=== PATIENT | female | born 1945 | race Caucasian/White ===

== ENCOUNTER 2017-01-16 08:39 | Day surgery (SDC) | payer MEDICARE ==
[2017-01-16] MEDS ORDERED: LACTATED RINGERS 1,000 ML IV ONE (09:30)
[2017-01-16] MEDS ORDERED: MIDAZOLAM 2 MG/2 ML VIAL IVP ONE (10:08)
[2017-01-16] MEDS ORDERED: fentaNYL 250 MCG/5 ML VIAL IVP ONE (10:08)
== END 2017-01-16 08:40 | disposition home or self-care (01) ==
PROC: 0DJD8ZZ Inspection of Lower Intestinal Tract, Via Natural or Artificial Opening Endoscopic (ICD-10-PCS; principal; 2017-01-16 09:45)
DX: Z12.11 Encounter for screening for malignant neoplasm of colon (principal); K57.30 Diverticulosis of large intestine without perforation or abscess without bleeding; K64.8 Other hemorrhoids; E78.00 Pure hypercholesterolemia, unspecified; F41.9 Anxiety disorder, unspecified; F32.9 Major depressive disorder, single episode, unspecified; I10 Essential (primary) hypertension
CPT/HCPCS: G0121; J3010; J7120

== ENCOUNTER 2017-04-22 09:05 | Outpatient (CLI) | payer MEDICARE ==
--- NOTE | 2017-04-22 16:18 | Mammography Report ---
DIGITAL DIAGNOSTIC BILATERAL MAMMOGRAM: 04/22/2017 CLINICAL INDICATION: History of right breast cancer status post lumpectomy and radiation therapy. TECHNIQUE: Bilateral CC and MLO views, right true lateral and laterally exaggerated craniocaudal vie ws. COMPARISON: 02/05/2016, 11/14/2015, 01/24/2015, 07/04/2014, 12/24/2013, 01/20/2013, 09/01/2012, 03/18, 03/05/2012, 02/21/2012, 02/04/2012. FINDINGS: The breasts again demonstrate scattered fibroglandular densities bilaterally. Coarse and punctate, typically benign calcifications are present. Postoperative and posttreatment changes in th e right breast are stable. No suspicious masses, clustered microcalcifications, or regions of jenaro ectural distortion are identified. IMPRESSION: BENIGN FINDINGS. RECOMMENDATION: The patient can return to routine annual screening unless otherwise clinically indic ated. BI-RADS category 2, benign findings. STANDARD QUALIFYING STATEMENTS 1. This examination was reviewed with the aid of Computer-Aided Detection (CAD). 2. A negative or benign imaging report should not delay biopsy if clinically suspicious findings are present. Consider surgical consultation if warranted. More than 5% of cancers are not identified by i maging. 3. Dense breasts may obscure an underlying neoplasm. JOB #: [id number] EXT JOB #:[id number]
== END 2017-04-22 09:06 | disposition home or self-care (01) ==
LOC: DI 09:05
PROVIDERS: ATTEND Internal Medicine Hematology & Oncology
DX: C50.911 Malignant neoplasm of unspecified site of right female breast (principal)
CPT/HCPCS: 77066

== ENCOUNTER 2017-05-08 08:00 | Outpatient (CLI) | payer MEDICARE ==
[2017-05-08 11:48] LABS: BASOPHILS % (AUTO) 0.5 %; EOSINOPHILS # (AUTO) 0.2 10^3/uL (0.0-0.7); EOSINOPHILS % (AUTO) 3.7 %; HCT - HEMATOCRIT 39.2 % (37.0-47.0); HGB - HEMOGLOBIN 13.3 g/dL (12.0-16.0); LYMPHOCYTES # (AUTO) 1.8 10^3/uL (1.5-3.5); LYMPHOCYTES % (AUTO) 27.2 %; MEAN CORPUSCULAR HEMOGLOBIN 29.4 pg (27.0-31.0); MEAN CORPUSCULAR VOLUME 86.5 fL (81.0-99.0); MEAN PLATELET VOLUME 8.5 fL (7.9-10.8); MONOCYTES # (AUTO) 0.7 10^3/uL (0.0-1.0); MONOCYTES % (AUTO) 10.6 %; NEUTROPHILS # (AUTO) 3.8 10^3/uL (1.5-6.6); RED BLOOD COUNT 4.53 10^6/uL (4.20-5.40); RED CELL DISTRIBUTION WIDTH 13.3 % (12.0-15.0); UNCORRECTED WHITE BLOOD COUNT 6.6 x10^3/uL; WHITE BLOOD COUNT 6.6 x10^3/uL (4.8-10.8)
[2017-05-08 12:12] LABS: ALBUMIN/GLOBULIN RATIO 1.1 (1.0-2.2); BILIRUBIN,TOTAL 0.6 mg/dL (0.2-1.0); BUN - BLOOD UREA NITROGEN 18 mg/dL (6-20); CALCIUM 9.1 mg/dL (8.5-10.3); CARBON DIOXIDE - CO2 27 mmol/L (21-32); CHLORIDE 103 mmol/L (101-111); CREATININE 0.7 mg/dL (0.4-1.0); GFR - MDRD 82 (>89); GLUCOSE 111 mg/dL (70-100); POTASSIUM 3.5 mmol/L (3.5-5.0); SODIUM 139 mmol/L (135-145); TOTAL PROTEIN 6.1 g/dL (6.7-8.2)
[2017-05-08 12:28] LABS: HEMOGLOBIN A1C 0.73 g/dL
[2017-05-09 07:53] LABS: CHOL/HDL RATIO 4.8 (<4.4); CHOLESTEROL 124 mg/dL; HDL CHOLESTEROL 26 mg/dL; LDL/HDL RATIO 2.1 (<4.4); TRIGLYCERIDES 213 mg/dL; VLDL CHOLESTEROL 43 mg/dL
== END 2017-05-08 08:01 | disposition home or self-care (01) ==
LOC: LAB.R 08:00
PROVIDERS: ATTEND Internal Medicine
DX: C50.919 Malignant neoplasm of unspecified site of unspecified female breast (principal); E78.2 Mixed hyperlipidemia; R73.09 Other abnormal glucose
CPT/HCPCS: 80053; 80061; 83036; 85025

== ENCOUNTER 2017-05-28 07:23 | Outpatient (CLI) | payer MEDICARE ==
[2017-05-28] MEDS ORDERED: IOPAMIDOL-300 100 ML VIAL IVP ONE (08:42)
--- NOTE | 2017-05-28 17:51 | CT Report ---
CT NECK WITH CONTRAST: 05/28/2017 CLINICAL INDICATION: Neck mass, swelling. Axial CT images of the neck were obtained with 80 mL Isovue-300 intravenously. In accordance with CT protocol optimization, one or more of the following dose reduction techniques w ere utilized for this exam: automated exposure control, adjustment of mA and/or KV based on patient size, or use of iterative reconstructive technique. No previous exam is available for comparison. The vascular structures enhance normally. No cervical adenopathy is present. The salivary glands an d thyroid gland are unremarkable. The tracheal air column is widely patent throughout. The nasophar ynx, oropharynx, and hypopharynx appear unremarkable. The visualized intraorbital contents are unrem arkable. Osseous structures demonstrate degenerative changes. IMPRESSION: NO EVIDENCE OF ADENOPATHY OR OTHER EXPLANATION FOR NECK SWELLING AND SENSATION OF A PALP ABLE MASS. JOB #: [id number] EXT JOB #:[id number]
== END 2017-05-28 07:24 | disposition home or self-care (01) ==
LOC: DI 07:23
PROVIDERS: ATTEND Otolaryngology
DX: R22.1 Localized swelling, mass and lump, neck (principal); M54.2 Cervicalgia
CPT/HCPCS: 70491; Q9967

== ENCOUNTER 2017-08-20 10:18 | Outpatient (CLI) | payer MEDICARE ==
--- NOTE | 2017-08-20 11:31 | XRAY Report ---
THREE-VIEW RIGHT ANKLE: 08/20/2017 CLINICAL INDICATION: Pain. FINDINGS: AP, lateral, oblique views of the right ankle demonstrate no evidence of fracture or dislo cation. The ankle mortise is preserved. No effusion is seen. Plantar and posterior calcaneal spurr ing is present. Soft tissue swelling is noted. IMPRESSION: SOFT TISSUE SWELLING, BUT NO EVIDENCE OF FRACTURE. DEGENERATIVE CHANGES. JOB #: [id number] EXT JOB #:[id number]
--- NOTE | 2017-08-20 11:32 | XRAY Report ---
THREE-VIEW RIGHT FOOT: 08/20/2017 CLINICAL INDICATION: Pain. FINDINGS: AP, lateral, oblique views of the right foot demonstrate mild degenerative changes at the 1st metatarsophalangeal joint. Plantar and posterior calcaneal spurring is present. Soft tissue swe lling is seen. There is no evidence of acute fracture or dislocation. IMPRESSION: MILD OSTEOARTHRITIS. SOFT TISSUE SWELLING, BUT NO EVIDENCE OF ACUTE FRACTURE. JOB #: [id number] EXT JOB #:[id number]
== END 2017-08-20 10:19 | disposition home or self-care (01) ==
LOC: DI 10:18
PROVIDERS: ATTEND Nurse Practitioner Primary Care
DX: M19.071 Primary osteoarthritis, right ankle and foot (principal)
CPT/HCPCS: 84550

== ENCOUNTER 2017-08-20 11:15 | Outpatient (CLI) | payer MEDICARE | END 2017-08-20 11:16 | disposition home or self-care (01) | LOC: LAB.R 11:15 | PROVIDERS: ATTEND Nurse Practitioner Primary Care | DX: M79.671 Pain in right foot (principal); M10.9 Gout, unspecified | CPT/HCPCS: 84550 ==

== ENCOUNTER 2017-10-22 08:05 | Outpatient (CLI) | payer MEDICARE ==
[2017-10-22 15:29] LABS: HEMOGLOBIN A1C 0.61 g/dL
== END 2017-10-22 08:06 | disposition home or self-care (01) ==
LOC: LAB.R 08:05
PROVIDERS: ATTEND Internal Medicine
DX: E11.9 Type 2 diabetes mellitus without complications (principal)
CPT/HCPCS: 83036

== ENCOUNTER 2017-12-15 11:10 | Outpatient (CLI) | payer MEDICARE | END 2017-12-15 11:11 | disposition home or self-care (01) | LOC: LAB.R 11:10 | PROVIDERS: ATTEND Internal Medicine | DX: M10.9 Gout, unspecified (principal) | CPT/HCPCS: 84550 ==

== ENCOUNTER 2018-02-18 08:00 | Outpatient (CLI) | payer MEDICARE ==
[2018-02-18 18:12] LABS: CALCIUM 9.3 mg/dL (8.5-10.3); CREATININE 0.8 mg/dL (0.4-1.0)
[2018-02-18 18:53] LABS: HB2 TOTAL 15.6 g/dL; HEMOGLOBIN A1C 0.64 g/dL; HEMOGLOBIN A1C % 5.9 % (4.6-6.2)
== END 2018-02-18 08:01 | disposition home or self-care (01) ==
LOC: LAB.R 08:00
PROVIDERS: ATTEND Internal Medicine
DX: E11.9 Type 2 diabetes mellitus without complications (principal); Z79.899 Other long term (current) drug therapy
CPT/HCPCS: 80048; 83036

== ENCOUNTER 2018-02-21 13:51 | Outpatient (CLI) | payer MEDICARE ==
--- NOTE | 2018-02-23 08:58 | MRI Report ---
EXAM: RIGHT FOREFOOT MRI WITHOUT CONTRAST EXAM DATE: 02/21/2018 03:25 PM. CLINICAL HISTORY: Chronic pain of right ankle, right foot pain. COMPARISON: Ankle MRI performed the same date. Radiographs 08/20/2017. TECHNIQUE: Multiplanar, multisequence T1-weighted and fluid-sensitive sequences of the forefoot witho ut contrast. Other: None. FINDINGS: Bones and articular surfaces: Mild cartilage thinning and irregularity with small marginal osteophyte formation at the first MTP joint. Patchy areas of subchondral marrow edema most pronounced at the di stal plantar aspect of the first metatarsal head. Small joint effusion with some synovitis. No discre te erosion demonstrated. No fractures are identified. No destructive bone lesions. Musculotendinous structures: Visualized flexor and extensor tendons appear intact without evidence of significant tendinosis or tenosynovitis. Visualized intrinsic muscles of the forefoot demonstrate no edema, atrophy or fatty replacement. Ligaments: Visualized components of the Lisfranc ligament appear intact. The visualized tarsometatars al and intermetatarsal ligaments appear intact. IMPRESSION: 1. Moderate first MTP osteoarthritis. [facility] MUSCULOSKELETAL RADIOLOGY SECTION Referring Provider Line: [phone] SITE ID: [id number]
--- NOTE | 2018-02-23 08:58 | MRI Report ---
EXAM: RIGHT ANKLE/HINDFOOT MRI WITHOUT CONTRAST EXAM DATE: 02/21/2018 03:47 PM. CLINICAL HISTORY: Chronic pain of right ankle, right foot pain. COMPARISON: Radiographs 08/20/2017. Forefoot MRI performed the same date. TECHNIQUE: Multiplanar, multisequence T1-weighted and fluid-sensitive sequences of the ankle/hindfoot without contrast. Other: None. FINDINGS: Bones and Articular Surfaces: Small talonavicular joint effusion. Irregular osteophytes and small foc i of well-corticated ossification at the tip of the medial and lateral malleoli consistent with old a nkle trauma. Ankle mortise appears intact. No osteochondral lesions. Subtalar, calcaneocuboid and yany onavicular joints are otherwise unremarkable. Musculotendinous Structures: Trace amount of fluid associated with the peroneus longus and brevis ten dons as well as the tibialis posterior. Visualized anterior, posterior and posterolateral ankle tendo ns otherwise appear intact. No muscle edema, atrophy or fatty replacement within the [id number]. Ligaments: The anterior and posterior talofibular, calcaneofibular, deltoid and spring ligaments appe ar intact. Normal signal within the tarsal sinus. IMPRESSION: 1. Minimal tenosynovitis involving the peroneus longus and brevis as well as the tibialis posterior. [facility] MUSCULOSKELETAL RADIOLOGY SECTION Referring Provider Line: [phone] SITE ID: [id number]
== END 2018-02-21 13:52 | disposition home or self-care (01) ==
LOC: DI 13:51
PROVIDERS: ATTEND Internal Medicine Rheumatology
DX: M19.071 Primary osteoarthritis, right ankle and foot (principal); M65.871 Other synovitis and tenosynovitis, right ankle and foot

== ENCOUNTER 2018-05-12 08:10 | Outpatient (CLI) | payer MEDICARE ==
[2018-05-12 11:06] LABS: BASOPHILS % (AUTO) 0.4 %; EOSINOPHILS # (AUTO) 0.2 10^3/uL (0.0-0.7); EOSINOPHILS % (AUTO) 2.8 %; HGB - HEMOGLOBIN 13.8 g/dL (12.0-16.0); LYMPHOCYTES # (AUTO) 1.9 10^3/uL (1.5-3.5); LYMPHOCYTES % (AUTO) 28.7 %; MEAN CORPUSCULAR HEMOGLOBIN 30.3 pg (27.0-31.0); MEAN CORPUSCULAR HGB CONC 33.3 g/dL (32.0-36.0); MEAN CORPUSCULAR VOLUME 91.2 fL (81.0-99.0); MEAN PLATELET VOLUME 8.8 fL (7.9-10.8); MONOCYTES # (AUTO) 0.6 10^3/uL (0.0-1.0); NEUTROPHILS # (AUTO) 3.8 10^3/uL (1.5-6.6); NEUTROPHILS % (AUTO) 59.1 %; PLT - PLATELET COUNT 230 10^3/uL (130-450); RED BLOOD COUNT 4.55 10^6/uL (4.20-5.40); RED CELL DISTRIBUTION WIDTH 15.2 % (12.0-15.0); WHITE BLOOD COUNT 6.5 x10^3/uL (4.8-10.8)
[2018-05-12 11:21] LABS: ALBUMIN 3.1 g/dL (3.2-5.5); ALBUMIN/GLOBULIN RATIO 0.8 (1.0-2.2); ALKALINE PHOSPHATASE 56 IU/L (42-121); ALT ALANINE AMINOTRANSFERASE 21 IU/L (10-60); AST ASPARTATE AMINOTRANSFERASE 19 IU/L (10-42); BILIRUBIN,TOTAL 0.7 mg/dL (0.2-1.0); BUN - BLOOD UREA NITROGEN 24 mg/dL (6-20); CALCIUM 9.8 mg/dL (8.5-10.3); CARBON DIOXIDE - CO2 30 mmol/L (21-32); CHLORIDE 101 mmol/L (101-111); CHOL/HDL RATIO 4.2 (<4.4); CHOLESTEROL 118 mg/dL; CREATININE 0.9 mg/dL (0.4-1.0); GFR - MDRD 61 (>89); GLUCOSE 103 mg/dL (70-100); HDL CHOLESTEROL 28 mg/dL; LDL CHOLESTEROL,CALCULATED 63 mg/dL; LDL/HDL RATIO 2.3 (<4.4); SODIUM 138 mmol/L (135-145); TOTAL PROTEIN 6.9 g/dL (6.7-8.2); URIC ACID 5.4 mg/dL (2.6-7.2); VLDL CHOLESTEROL 27 mg/dL
[2018-05-12 11:44] LABS: HEMOGLOBIN A1C 0.63 g/dL
== END 2018-05-12 08:11 | disposition home or self-care (01) ==
LOC: LAB.R 08:10
PROVIDERS: ATTEND Internal Medicine
DX: E11.9 Type 2 diabetes mellitus without complications (principal); Z79.899 Other long term (current) drug therapy; C50.919 Malignant neoplasm of unspecified site of unspecified female breast; M10.9 Gout, unspecified; I10 Essential (primary) hypertension; E78.5 Hyperlipidemia, unspecified
CPT/HCPCS: 80053; 80061; 83036; 83721; 84443; 84550; 85025

== ENCOUNTER 2018-06-23 08:50 | Outpatient (CLI) | payer MEDICARE ==
--- NOTE | 2018-06-25 14:05 | Mammography Report ---
Procedure Date: 06/23/2018 Accession Number: [id number] / [id number] Procedure: MGN - Screening Mammo Dig Bilat CPT Code: FULL RESULT: EXAM: Screening Mammo Dig Bilat DATE: 06/23/2018 9:16 AM CLINICAL HISTORY: 72-year-old female with personal history of right breast cancer status post lumpectomy and radiation as well as 2 benign left breast biopsies. TECHNIQUE: Bilateral CC and MLO views were obtained. COMPARISON: 04/22/2017, 02/05/2016, 01/24/2015, 12/24/2013. FINDINGS: The breasts demonstrate scattered fibroglandular densities bilaterally. Postsurgical changes are seen in the right breast. Postsurgical changes are also seen in the left breast. There is a new focal asymmetry in the upper right breast seen on the MLO view only which needs further evaluation with spot magnification views. IMPRESSION: Incomplete examination RECOMMENDATION: Additional evaluation as above. BIRADS CATEGORY 0: Incomplete examination STANDARD QUALIFYING STATEMENTS: 1. This examination was reviewed with the aid of Computer-Aided Detection (CAD). 2. A negative or benign imaging report should not delay biopsy if clinically suspicious findings are present. Consider surgical consultation if warrented. More than 5% of cancers are not identified by imaging. 3. Dense breasts may obscure an underlying neoplasm.
== END 2018-06-23 08:51 | disposition home or self-care (01) ==
LOC: DI.N 08:50
PROVIDERS: ATTEND Radiology Diagnostic Radiology
DX: Z12.31 Encounter for screening mammogram for malignant neoplasm of breast (principal); R92.8 Other abnormal and inconclusive findings on diagnostic imaging of breast
CPT/HCPCS: 77067

== ENCOUNTER 2018-06-25 13:26 | Outpatient (CLI) | payer MEDICARE ==
--- NOTE | 2018-06-25 15:01 | DEXA Report ---
Procedure Date: 06/25/2018 Accession Number: [id number] / [id number] Procedure: DEX - Dexa Spine and/or Hip CPT Code: FULL RESULT: EXAM: Dexa Spine and/or Hip DATE: 06/25/2018 2:03 PM CLINICAL HISTORY: POSTMENOPAUSAL, FOOT PAIN, RIGHT, OSTEOPENIA TECHNIQUE: Dual energy x-ray absorptiometry (DXA) was performed on a [employer] System. Regions measured are the AP Spine, femoral neck, and if needed forearm. COMPARISON: None. In accordance with the International Society for Clinical Densitometry (ISCD) guidelines, data from previous exams may be reanalyzed using current recommendations and techniques. This is done to allow a more accurate basis for comparison with the current study. FINDINGS: The data for the lumbar spine is as follows: BMD (g/cm/cm) T-SCORE Z-SCORE REGION L1 1.042 -0.7 0.6 L2 1.099 -0.8 0.5 L3 1.199 0.0 1.3 L4 1.309 0.9 2.3 TOTAL 1.179 0.0 1.3 NOTE: All evaluable vertebrae are used for classification The data for the hip is as follows: BMD (g/cm/cm) T-SCORE Z-SCORE REGION Neck 1.036 0.0 1.6 TOTAL 1.125 0.9 2.4 NOTE: The femoral neck or total proximal femur, whichever is lowest, is used for classification. IMPRESSION: THE WHO CLASSIFICATION BASED ON THE INTERNATIONAL REFERENCE STANDARD IS NORMAL. THE FRACTURE RISK IS NOT INCREASED. RECOMMENDATION: Patients with diagnosis of osteoporosis or osteopenia should have regular bone mineral density assessment. For those eligible for Medicare, routine testing is allowed once every 2 years. Testing frequency can be increased for patients who have rapidly progressing disease or for those who are receiving medical therapy to restore bone mass. COMMENT: World Health Organization (WHO) definitions for osteoporosis and osteopenia: NORMAL BMD: T-score at -1.0 or higher, fracture risk is low OSTEOPENIA BMD: T-score between -1.0 and -2.5, fracture risk is increased. OSTEOPOROSIS BMD: T-score at -2.5 or lower, fracture risk is high. National Osteoporosis Foundation recommends: 1. Obtain adequate dietary calcium (at least 1200 mg per day) and vitamin D (400-800 international units per day). 2. Participate, as appropriate, in regular weightbearing and muscle-strengthening exercise. 3. Avoid tobacco use and reduce alcohol and caffeine intake. 4. For more detailed information see the website at www.NOF.org.
== END 2018-06-25 13:27 | disposition home or self-care (01) ==
LOC: DI 13:26
PROVIDERS: ATTEND Internal Medicine
DX: M79.671 Pain in right foot (principal); Z78.0 Asymptomatic menopausal state
CPT/HCPCS: 77080

== ENCOUNTER 2018-12-08 08:00 | Outpatient (CLI) | payer MEDICARE ==
[2018-12-08 14:38] LABS: HB2 TOTAL 15.3 g/dL; HEMOGLOBIN A1C 0.61 g/dL; HEMOGLOBIN A1C % 5.8 % (4.6-6.2)
== END 2018-12-08 23:59 | disposition home or self-care (01) ==
LOC: LAB.R 08:00
PROVIDERS: ATTEND Internal Medicine
DX: E11.9 Type 2 diabetes mellitus without complications (principal)
CPT/HCPCS: 83036

== ENCOUNTER 2019-04-03 13:27 | Outpatient (CLI) | payer MEDICARE ==
--- NOTE | 2019-04-05 09:00 | Ultrasound Report ---
Reason: MASS OF SOFT TISSUE Procedure Date: 04/03/2019 Accession Number: [id number] / [id number] Procedure: US - Pelvic Limited or F/U CPT Code: FULL RESULT: EXAM: PELVIS ULTRASOUND, LIMITED EXAM DATE: 04/03/2019 02:02 PM. CLINICAL HISTORY: Mass of soft tissue. COMPARISON: ABDOMEN/PELVIS W04/22/2016 8:56 PM. TECHNIQUE: Real-time scanning was performed with static images obtained. FINDINGS: Targeted evaluation with color and mata scale imaging in the left suprapubic area was performed. Cellophane Wrapping Examiner static images acquired and reviewed. In the area of clinical concern, there is a lobular avascular soft tissue mass isoechoic to the adjacent subcutaneous fat measuring 4.7 x 2.6 x 5.2 cm. No additional mass, adenopathy or collection. Remaining soft tissues are otherwise unremarkable. IMPRESSION: 1. 4.7 x 2.6 x 5.2 cm circumscribed soft tissue mass in the area of clinical concern demonstrating echotexture isoechoic to the adjacent subcutaneous fat. No internal vascularity. Sonographic findings are most consistent with a lipoma. Findings were demonstrated on a CT performed 04/22/2016. 2. If lesion increases in size or become painful, recommend MRI with and without contrast. 3. No concerning adenopathy or collection seen. [facility]
== END 2019-04-03 13:28 | disposition home or self-care (01) ==
LOC: DI 13:27
PROVIDERS: ATTEND Nurse Practitioner
DX: M79.9 Soft tissue disorder, unspecified (principal); R22.2 Localized swelling, mass and lump, trunk
CPT/HCPCS: 76857

== ENCOUNTER 2019-05-11 06:07 | Day surgery (SDC) | payer MEDICARE ==
[2019-05-11] MEDS ORDERED: LACTATED RINGERS 1,000 ML IV ONE (06:59)
--- NOTE | 2019-05-11 07:05 | ANESTHESIA ---
Pre-Anesthesia VS, & Labs - Diagnosis L LQ Lipoma - Procedure Excision L LQ lipoma Vital Signs: Temp Pulse Resp BP Pulse Ox 36.4 C L 51 L 16 138/64 H 95 05/11/19 06:37 05/11/19 06:37 05/11/19 06:37 05/11/19 06:37 05/11/19 06:37 Height 5 ft 4 in Weight (kg) 80.6 kg Body Mass Index 28.8 - NPO >8 hours - Is Patient ?: No - Lab Results Current Lab Results: Laboratory Tests 05/11/19 06:55: POC Whole Bld Glucose 102 H Lab results reviewed: Yes Home Medications and Allergies Home Medications: Ambulatory Orders Calcium Carbonate/Vitamin D3 [Calcium 600 + Vit D 400 Tablet] 1 each PO DAILY 05/04/19 Spironolactone 1 DAILY 05/11/19 Metoprolol Succinate [Toprol Xl] 1.5 tab PO BID 06/09/13 amLODIPine [Norvasc] 5 mg PO DAILY 06/09/13 Atorvastatin Calcium 40 mg PO DAILY 12/06/13 clonazePAM [Clonazepam] 0.5 mg PO DAILY 12/30/16 Calcium Carbonate/Vitamin D3 [Calcium 600 + Vit D 400 Tablet] 1 each PO DAILY 05/04/19 Allergies/Adverse Reactions: Allergies Allergy/AdvReac Type Severity Reaction Status Date / Time lamotrigine Allergy Unknown Verified 05/11/19 07:03 mirtazapine Allergy Unknown Verified 05/11/19 07:03 losartan AdvReac Respiratory Verified 05/11/19 07:03 terazosin AdvReac Respiratory Verified 05/11/19 07:03 tape AdvReac Rash Uncoded 05/11/19 07:03 Anes History & Medical History - Anesthetic History Anesthesia Complications: reports: No previous complications - Medical History Cardiovascular: reports: Hypertension, High cholesterol, Murmur, Arrhythmia Pulmonary: reports: Sleep apnea, CPAP use Gastrointestinal: reports: Diverticulitis Urinary: reports: None Musculoskeletal: reports: Osteoarthritis Endocrine/Autoimmune: reports: None Skin: reports: Other - Surgical History General: Colonoscopy Eyes Ears Nose Throat (EENT): Cataracts Gynecologic: Hysterectomy Exam General: Alert, Oriented x3, Cooperative Mouth Openin Fingerbreadth Neck Mobility: Normal Mallampati classification: II Thyromental Distance: 4-6 cm Respiratory: Lungs clear, No respiratory distress Cardiovascular: Regular rate Neurological: Normal gait Mental/Cognitive Status: Alert/Oriented X3 Cognitive Status: Within normal limits Plan Anesthesia Type: General Consent for Procedure(s) Verified and Reviewed: Yes Code Status: Attempt Resuscitation ASA classification: 2-Mild systemic disease Is this case an emergency?: No
[2019-05-11] MEDS ORDERED: BUPIVACAINE 0.5%-EPI 1:200000 PF 30 ML VIAL ONE (07:13)
[2019-05-11] MEDS ORDERED: LIDOCAINE 1% 50 ML MDV ONE (07:13)
[2019-05-11] MEDS ORDERED: ONDANSETRON 4 MG/2 ML VIAL IVP ONE (07:30)
[2019-05-11] MEDS ORDERED: fentaNYL 100 MCG/2 ML VIAL IVP ONE (07:30)
[2019-05-11] MEDS ORDERED: PROPOFOL 200 MG/20 ML VIAL IVP ONE (07:30)
[2019-05-11] MEDS ORDERED: LIDOCAINE-MPF 2% 5 ML VIAL IM ONE (07:30)
[2019-05-11] MEDS ORDERED: MIDAZOLAM 2 MG/2 ML VIAL IVP ONE (07:30)
[2019-05-11] MEDS ORDERED: ceFAZolin 1 GM VIAL IV ONE (07:30)
[2019-05-11] MEDS ORDERED: BUPIVACAINE 0.5%-EPI 1:200000 PF 30 ML VIAL SUBQ ONE (08:01)
[2019-05-11] MEDS ORDERED: LIDOCAINE 1% 10 ML MDV SUBQ ONE (08:01)
--- NOTE | 2019-05-11 08:16 | OPERATIVE REPORT ---
Operative Report - General Procedure Date: 05/11/19 Planned Procedure: Excision of LLQ Abdominal Wall Mass Pre-Op Diagnosis: LLQ Mass Procedure Performed: Excision of LLQ Mass Post Op Diagnosis: LLQ Mass Consistent with a Lipoma - Procedure Note Primary Surgeon: Monique Anesthesia Provider: DMITRI Sanches Anesthesia Technique: General LMA, Local Pathology: Mass to pathology in formalin IV Fluids (mL): 100 Estimated Blood Loss (mL): 5 Findings: Lobulated fatty mass in the LLQ Complications: None apparent - Other Other Information/Narrative: After obtaining informed consent, the patient is brought to the operating room and placed in the supine position on the operating table.Successful induction of general endotracheal anesthesia, appropriate padding of all bony prominences, and placement of appropriate monitors, the abdomen and left lower quadrant were prepped and draped in the standard surgical fashion. A timeout was held per SCOAP protocol. Following infiltration with local anesthetic to create a field block, an incision was created directly over the palpable mass and carried down through the skin and subcutaneous tissue. We encountered a lobulated mass within a well circumscribed pocket in the left lower quadrant. The mass was delivered into the field and was noted to be fairly incohesive with multiple lobulated areas that fell apart into separate sections.The wound was then checked for hemostasis and irrigated with warm water.It was aspirated free of all fluid and particulate matter.The defect was then addressed with Vicryl and Monocryl sutures and Dermabond was applied to the skin. All sponge, needle, and instrument counts were correct at the conclusion of the case. The patient was allowed awaken from anesthesia without difficulty and taken to the postanesthesia care unit in good condition.
[2019-05-11] MEDS ORDERED: HYDROcod/ACETAM 5/325 MG TABLET PO PRN (08:23)
[2019-05-11] MEDS ORDERED: ONDANSETRON 4 MG/2 ML VIAL IVP PRN (08:23)
[2019-05-11 09:23] VITALS: BP 136/78
== END 2019-05-11 06:08 | disposition home or self-care (01) ==
LOC: SDS 06:07
PROVIDERS: ATTEND Surgery
PROC: 0JB80ZZ Excision of Abdomen Subcutaneous Tissue and Fascia, Open Approach (ICD-10-PCS; principal; 2019-05-11 07:30)
DX: D17.1 Benign lipomatous neoplasm of skin and subcutaneous tissue of trunk (principal); I10 Essential (primary) hypertension; I49.9 Cardiac arrhythmia, unspecified; R01.1 Cardiac murmur, unspecified; G47.30 Sleep apnea, unspecified; Z85.3 Personal history of malignant neoplasm of breast; Z92.3 Personal history of irradiation; Z79.899 Other long term (current) drug therapy
CPT/HCPCS: 22903; J7120

== ENCOUNTER 2019-05-31 07:25 | Outpatient (CLI) | payer MEDICARE ==
[2019-05-31 08:16] LABS: ALBUMIN 3.3 g/dL (3.2-5.5); ALBUMIN/GLOBULIN RATIO 0.9 (1.0-2.2); ALKALINE PHOSPHATASE 55 IU/L (42-121); ALT ALANINE AMINOTRANSFERASE 20 IU/L (10-60); AST ASPARTATE AMINOTRANSFERASE 18 IU/L (10-42); BILIRUBIN,TOTAL 0.5 mg/dL (0.2-1.0); BUN - BLOOD UREA NITROGEN 21 mg/dL (6-20); CALCIUM 9.3 mg/dL (8.5-10.3); CARBON DIOXIDE - CO2 26 mmol/L (21-32); CHLORIDE 105 mmol/L (101-111); CHOL/HDL RATIO 4.9 (<4.4); CHOLESTEROL 142 mg/dL; CREATININE 0.9 mg/dL (0.4-1.0); GFR - MDRD 61 (>89); GLUCOSE 108 mg/dL (70-100); HDL CHOLESTEROL 29 mg/dL; LDL CHOLESTEROL,CALCULATED 91 mg/dL; LDL/HDL RATIO 3.1 (<4.4); SODIUM 141 mmol/L (135-145); TOTAL PROTEIN 6.8 g/dL (6.7-8.2); URIC ACID 7.5 mg/dL (2.6-7.2); VLDL CHOLESTEROL 22 mg/dL
[2019-05-31 08:42] LABS: HB2 TOTAL 13.6 g/dL; HEMOGLOBIN A1C 0.61 g/dL; HEMOGLOBIN A1C % 6.3 % (4.6-6.2)
[2019-05-31 08:46] LABS: BASOPHILS # (AUTO) 0.1 10^3/uL (0.0-0.1); BASOPHILS % (AUTO) 0.8 %; EOSINOPHILS # (AUTO) 0.2 10^3/uL (0.0-0.7); EOSINOPHILS % (AUTO) 2.6 %; HGB - HEMOGLOBIN 13.7 g/dL (12.0-16.0); LYMPHOCYTES # (AUTO) 2.1 10^3/uL (1.5-3.5); LYMPHOCYTES % (AUTO) 29.3 %; MEAN CORPUSCULAR HEMOGLOBIN 30.4 pg (27.0-31.0); MEAN CORPUSCULAR HGB CONC 32.5 g/dL (32.0-36.0); MEAN CORPUSCULAR VOLUME 93.3 fL (81.0-99.0); MEAN PLATELET VOLUME 10.4 fL (7.9-10.8); MONOCYTES # (AUTO) 0.9 10^3/uL (0.0-1.0); MONOCYTES % (AUTO) 11.9 %; NEUTROPHILS # (AUTO) 3.9 10^3/uL (1.5-6.6); NEUTROPHILS % (AUTO) 54.3 %; PLT - PLATELET COUNT 248 10^3/uL (130-450); RED BLOOD COUNT 4.51 10^6/uL (4.20-5.40); RED CELL DISTRIBUTION WIDTH 13.4 % (12.0-15.0); WHITE BLOOD COUNT 7.2 x10^3/uL (4.8-10.8)
== END 2019-05-31 07:26 | disposition home or self-care (01) ==
LOC: LAB 07:25
PROVIDERS: ATTEND Nurse Practitioner
DX: M10.9 Gout, unspecified (principal); I10 Essential (primary) hypertension; E78.5 Hyperlipidemia, unspecified; R73.01 Impaired fasting glucose
CPT/HCPCS: 36415; 80053; 80061; 83036; 83721; 84443; 84550; 85025

== ENCOUNTER 2019-06-11 07:42 | Outpatient (CLI) | payer MEDICARE | END 2019-06-11 07:43 | disposition home or self-care (01) | LOC: DI 07:42 | PROVIDERS: ATTEND Nurse Practitioner | DX: I10 Essential (primary) hypertension (principal); E78.5 Hyperlipidemia, unspecified | CPT/HCPCS: 93306 ==

== ENCOUNTER 2019-07-12 15:13 | Outpatient (CLI) | payer MEDICARE ==
--- NOTE | 2019-07-12 16:08 | SLEEP CARE CONSULTATION ---
Information from patient questionnaire entered by Linda Banuelos. I have reviewed and concur with the information entered by Linda Banuelos. This document represents the service I personally performed and the decisions made by me, Klaudia Stoll MD, [facility]. History of Present Illness Previous diagnosis: Moderate, Obstructive Sleep Apnea-Hypopnea Syndrome AHI: 15.1 Reason for CPAP/BiPAP follow up: other (8 MONTH FU NEW MACHINE) Equipment type: CPAP Equipment obtained from: [employer] Mask style: Nasal pillows Prior sleep studies: Yes Year and Where: 2003 [facility] HPI additional information: HPI: Ms. Holden returned today for annual follow up of nasal CPAP therapy. She was diagnosed to have moderate obstructive sleep apnea-hypopnea syndrome (AHI was 15.4). The patient wears with ResMed AirFit P-10 nasal pillows. She reports using the device nightly and all through the night. She complained of no particular problem with the device such as soreness on the face, dry nose, epistaxis, nasal congestion or headache. She thinks that the pressure of 8 14 cmH2O is comfortable. On the CPAP therapy she notices improvement in her sleep quality, and that she wakes up feeling fresher in the morning and more awake/alert during the day. The average residual AHI is 1.4; and average time in large leak per day is 6 seconds. The 90th percentile pressure is 9.2 cmH2O. CPAP Compliance Data - Data Reviewed with Patient Average duration of nightly device use: 7H 27M Compliance rate %: 93.3 Current pressure setting (cmH2O): 8-12 Humidity settin Subjective Patient concerns: reports: mask discomfort Current pressure setting perceived as: comfortable Initial [place] Sleepiness Scale score: 15 Current [place] Sleepiness Scale score: 15 Allergies and Home Medications Drug allergies reviewed: Yes Home medication list reviewed: Yes Review of Systems Review of systems same as previous: Yes Impression and Plan IMPRESSION: 1. Obstructive Sleep Apnea-Hypopnea Syndrome, moderate, with the patient continuing to do well on nasal CPAP therapy. She has excellent compliance and significant clinical improvement. The current pressure appears effective and comfortable. Overall, she is very satisfied with treatment and plans to continu e with it long-term. Because the CPAP is now older than the useful life of 5 years, I will order the patient a new one and make it an autoCPAP set between 6 and 10 cmH2O. PLAN: 1. Prescription made for an autoCPAP, heated humidifier, and related supplies. 2. Try to lose weight 3. Try ResMed N30i mask or Respironics DreamWear nasal cushion mask. 4. Return for follow up after one month on the new machine. I spent 100% of this 15 minute visit face to face with the patient with greater than 50% of this was spent time counseling the patient and coordination of care.
== END 2019-07-12 15:14 | disposition home or self-care (01) ==
LOC: SC 15:13
PROVIDERS: ATTEND Internal Medicine Pulmonary Disease
DX: G47.33 Obstructive sleep apnea (adult) (pediatric) (principal)
CPT/HCPCS: 99213; G0463; 99212

== ENCOUNTER 2019-07-14 13:23 | Outpatient (CLI) | payer MEDICARE ==
--- NOTE | 2019-07-15 08:37 | Mammography Report ---
Reason: SCREENING MAMMO Procedure Date: 07/14/2019 Accession Number: [id number] / [id number] Procedure: YADIRA - Screening Mammo w/Sky CPT Code: FULL RESULT: EXAM: Screening Mammo w/Sky DATE: 07/14/2019 2:04 PM CLINICAL HISTORY: Screening encounter. Personal history of right breast cancer status post lumpectomy in 2012 and left breast excisional biopsy with negative pathology. Family history of breast cancer in a sister at the age of 42. TECHNIQUE: (B) - Bilateral CC, laterally exaggerated CC, MLO views were obtained. COMPARISON: 06/23/2018 through 11/14/2015. PARENCHYMAL PATTERN: (A) - The breast(s) demonstrate(s) scattered fibroglandular densities. FINDINGS: Redemonstration of postsurgical changes in the right breast with continued contraction of the surgical bed in no interval increase in size of the postsurgical region, typically benign evolution. Postbiopsy changes in the left breast also seen, typically benign and essentially unchanged. There are no suspicious masses, calcifications, or areas of distortion. IMPRESSION: Benign findings. BI-RADS category 2. RECOMMENDATION: (ANNUAL) - Recommend routine annual screening mammography. BI-RADS CATEGORY: (2) - Benign Findings. STANDARD QUALIFYING STATEMENTS: 1. This examination was not reviewed with the aid of Computer-Aided Detection (CAD). 2. A negative or benign imaging report should not preclude biopsy if clinically suspicious findings are present. 3. Dense breasts may obscure an underlying neoplasm. 4. This examination was reviewed with the aid of 3D breast imaging (tomosynthesis).
== END 2019-07-14 13:24 | disposition home or self-care (01) ==
LOC: DI 13:23
PROVIDERS: ATTEND Nurse Practitioner
DX: Z12.31 Encounter for screening mammogram for malignant neoplasm of breast (principal); Z08 Encounter for follow-up examination after completed treatment for malignant neoplasm; Z85.3 Personal history of malignant neoplasm of breast; Z80.3 Family history of malignant neoplasm of breast
CPT/HCPCS: 77063; 77067

== ENCOUNTER 2019-09-28 13:42 | Outpatient (CLI) | payer MEDICARE ==
[2019-09-28 14:57] VITALS: BP 120/50
--- NOTE | 2019-09-28 14:57 | SLEEP CARE CONSULTATION ---
Information from patient questionnaire entered by Linda Banuelos. I have reviewed and concur with the information entered by Linda Banuelos. This document represents the service I personally performed and the decisions made by me, Jannet Padilla, RN, MSN, METER TECHNICIAN. History of Present Illness Previous diagnosis: Moderate, Obstructive Sleep Apnea-Hypopnea Syndrome AHI: 15.1 Reason for follow up: first compliance after device update Equipment type: CPAP Equipment obtained from: [employer] Mask style: Nasal Mask brand: Respironics (Dreamwear) Backup mask available: Yes Last cushion change: not since set up Prior sleep studies: Yes CPAP Compliance Data - Data Reviewed with Patient Average duration of nightly device use: 8H 16M Compliance rate %: 100 Current pressure setting (cmH2O): 6-10 Humidity settin Heated hose settin Average residual AHI: 5.1 Central apnea: 0.2 Obstructive apnea: 1/2 Hypopnea: 3.7 Average large leak: 1M 28S Subjective Patient concerns: reports: other (pre heat and heated hose do not seem to be working. Difficult to sleep prone with CPAP mask. ). denies: aerophagia, mask discomfort, air blowing in eyes, mask leak noise, condensation in mask/hose, nasal congestion, dry mouth, nose, throat, epistaxis Observed to snore while using device: No Current pressure setting perceived as: comfortable On therapy, patient: reports: sleeping better, awakening more refreshed, being more awake and alert during the day, more rested overall. denies: drowsiness while driving Initial [place] Sleepiness Scale score: 15 Current [place] Sleepiness Scale score: 4 Allergies and Home Medications Known drug allergies: Yes (see list ) Home medication list reviewed: Yes Allergy and home medication list: Medication Name (generic/name brand) Strength & Dosage Metoprolol 25mg tab 1.5 twice daily Amlodipine Besylate 2.5mg tab two daily Spironolactone 25mg tab one daily Atorvastatin 40mg tab one daily Doxepin 10mg tab one as needed Clozanepam 0.5mg tab one daily Calcium + Vitamin D 600mg/800IU tab two daily allopurinol 100mg 2 daily escitalopram 10mg HS Review of Systems Review of systems same as previous: No (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 Obstructive Sleep Apnea-Hypopnea Syndrome, moderate , with good treatment compliance and apnea control. On CPAP therapy, the patient has better sleep quality and is more rested overall. To improve sleep prone with CPAP ( her preferred sleep position), I showed her a CPAP pillow sample. This and other styles can be bought online for about $60. For her preheat question that did not seem to be working. We looked in the manual and found that it needed to be turned on when she wants to use nightly. If further questions she is to call [facility]. In addition, she wonders if her heated hose is working as it does not feel warm when checked. Thus I showed her how it should be checked with the sample CPAP in office. If no heat, she is to contact [facility]. She also needs to contact [facility] for updating her mask cushions as discussed to maintain seal and comfort of her cushion. Since her BMI is now 30.7 with recent weight gain and she is now prediabetic, she was advised of importance of losing weight to reduce blood sugar and to reduce apnea risk as well as overall health risks associated with obesity. She was advised to discuss a diet consult with diabetic program with PCP. If she achieves significant weight loss then her CPAP pressure requirements may decrease. Symptoms to report for further pressure adjustment discussed. Currently I will adjust her autoCPAP range slightly higher due to mild elevation of her residual AHI. If pressure change uncomfortable, she is advised to contact this office. Patient's apnea severity and rationale for treatment to reduce apnea, improve sleep quality and reduce cardiovascular and cerebrovascular events was reviewed. I also reviewed the benefit of consistent device use of CPAP for hypertension, anxiety. * * Change CPAP pressure to 8-12 cmH2O * Contact Andreina re hose concerns. * Contact PCP for diet consultation. * Consider a CPAP pillow * Notify me if snoring with mask or feeling that the pressure is too much or too little * Attempt to lose weight * Return for follow up in 1 year, or sooner if concerns arise I spent 100% of this 35 minute visit face to face with the patient with greater than 50% of this was spent time counseling the patient and coordination of care.
== END 2019-09-28 13:43 | disposition home or self-care (01) ==
LOC: SC 13:42
PROVIDERS: ATTEND Nurse Practitioner Family
DX: G47.33 Obstructive sleep apnea (adult) (pediatric) (principal)
CPT/HCPCS: 99214; G0463; 99212

== ENCOUNTER 2020-07-12 08:00 | Outpatient (CLI) | payer MEDICARE ==
[2020-07-17 20:26] LABS: HEMOGLOBIN A1c% 6.5 % (4.27-6.07)
== END 2020-07-12 23:59 | disposition home or self-care (01) ==
LOC: LAB 08:00
PROVIDERS: ATTEND Nurse Practitioner
DX: R73.01 Impaired fasting glucose (principal)
CPT/HCPCS: 83036

== ENCOUNTER 2020-07-12 10:36 | Outpatient (CLI) | payer MEDICARE ==
[2020-07-12 18:45] LABS: BASOPHILS # (AUTO) 0.1 10^3/uL (0.0-0.1); BASOPHILS % (AUTO) 0.7 %; EOSINOPHILS # (AUTO) 0.2 10^3/uL (0.0-0.7); HGB - HEMOGLOBIN 13.6 g/dL (12.0-16.0); LYMPHOCYTES # (AUTO) 2.6 10^3/uL (1.5-3.5); MEAN CORPUSCULAR HEMOGLOBIN 30.3 pg (27.0-31.0); MEAN CORPUSCULAR HGB CONC 31.1 g/dL (32.0-36.0); MEAN CORPUSCULAR VOLUME 97.6 fL (81.0-99.0); MEAN PLATELET VOLUME 10.7 fL (7.9-10.8); MONOCYTES # (AUTO) 0.8 10^3/uL (0.0-1.0); MONOCYTES % (AUTO) 10.7 %; NEUTROPHILS # (AUTO) 3.7 10^3/uL (1.5-6.6); NEUTROPHILS % (AUTO) 49.5 %; PLT - PLATELET COUNT 253 10^3/uL (130-450); RED BLOOD COUNT 4.49 10^6/uL (4.20-5.40); RED CELL DISTRIBUTION WIDTH 14.6 % (12.0-15.0); WHITE BLOOD COUNT 7.6 x10^3/uL (4.8-10.8)
[2020-07-12 19:02] LABS: ALBUMIN 3.4 g/dL (3.2-5.5); ALBUMIN/GLOBULIN RATIO 0.9 (1.0-2.2); ALKALINE PHOSPHATASE 65 IU/L (42-121); ALT ALANINE AMINOTRANSFERASE 23 IU/L (10-60); AST ASPARTATE AMINOTRANSFERASE 20 IU/L (10-42); BILIRUBIN,TOTAL 0.9 mg/dL (0.2-1.0); BUN - BLOOD UREA NITROGEN 20 mg/dL (6-20); CARBON DIOXIDE - CO2 27 mmol/L (21-32); CHLORIDE 103 mmol/L (101-111); CHOL/HDL RATIO 5.3 (<4.4); CHOLESTEROL 142 mg/dL; CREATININE 0.8 mg/dL (0.4-1.0); GLUCOSE 120 mg/dL (70-100); HDL CHOLESTEROL 27 mg/dL; LDL CHOLESTEROL,CALCULATED 60 mg/dL; LDL/HDL RATIO 2.2 (<4.4); SODIUM 139 mmol/L (135-145); URIC ACID 6.3 mg/dL (2.6-7.2); VLDL CHOLESTEROL 55 mg/dL
[2020-07-12 19:03] LABS: CRP - C-REACTIVE PROTEIN < 1.0 mg/dL (0-1.0)
== END 2020-07-12 23:59 | disposition home or self-care (01) ==
LOC: LAB.WCP 10:36
PROVIDERS: ATTEND Nurse Practitioner
DX: I10 Essential (primary) hypertension (principal); E78.5 Hyperlipidemia, unspecified; R73.01 Impaired fasting glucose; Z79.899 Other long term (current) drug therapy; F41.9 Anxiety disorder, unspecified; F41.8 Other specified anxiety disorders; I49.9 Cardiac arrhythmia, unspecified; R01.1 Cardiac murmur, unspecified; M10.9 Gout, unspecified
CPT/HCPCS: 36415; 80053; 80061; 83721; 84443; 84550; 85025; 85651; 86140

== ENCOUNTER 2020-08-25 13:09 | Outpatient (CLI) | payer MEDICARE | END 2020-08-25 13:10 | disposition home or self-care (01) | LOC: DI 13:09 | PROVIDERS: ATTEND Nurse Practitioner | DX: R01.1 Cardiac murmur, unspecified (principal); I49.9 Cardiac arrhythmia, unspecified; I70.0 Atherosclerosis of aorta; E78.5 Hyperlipidemia, unspecified; I08.0 Rheumatic disorders of both mitral and aortic valves | CPT/HCPCS: 93306 ==

== ENCOUNTER 2020-08-25 14:45 | Outpatient (CLI) | payer MEDICARE ==
--- NOTE | 2020-08-25 16:11 | DEXA Report ---
PROCEDURE: Dexa Spine and/or Hip INDICATIONS: POST MENOPAUSAL TECHNIQUE: Dual energy x-ray absorptiometry (DXA) was performed on a [employer] System. Regions measur ed are the AP Spine, femoral neck, and if needed forearm. COMPARISON: 06/25/2018. FINDINGS: Lumbar Spine: Bone Mineral Density 1.161 g/cm/cm,T score -0.2, normal Left Hip: Bone Mineral Density 1.144 g/cm/cm,T score 1.1, normal Left Femoral Neck: Bone Mineral Density 1.032 g/cm/cm, T score 0.0, normal (T score greater or equal to -1.0: NORMAL) (T score from -1.1 to -2.4: OSTEOPENIA) (T score less than or equal to -2.5 to: OSTEOPOROSIS) Impression: Normal bone density. Findings unchanged compared to prior exam obtained 06/25/2018. Patients with diagnosis of osteoporosis or osteopenia should have regular bone mineral density assess ment. For those eligible for Medicare, routine testing is allowed once every 2 years. Testing frequ ency can be increased for patients who have rapidly progressing disease or for those who are receivin g medical therapy to restore bone mass. Reviewed by: Pinky Shelley MD, PhD on 08/25/2020 4:10 PM PDT Approved by: Pinky Shelley MD, PhD on 08/25/2020 4:10 PM PDT Station ID: [id number]
== END 2020-08-25 23:59 | disposition home or self-care (01) ==
LOC: DI 14:45
PROVIDERS: ATTEND Nurse Practitioner
DX: Z78.0 Asymptomatic menopausal state (principal)
CPT/HCPCS: 77080

== ENCOUNTER 2020-08-25 15:33 | Outpatient (CLI) | payer MEDICARE ==
--- NOTE | 2020-08-28 16:18 | Mammography Report ---
BILATERAL DIGITAL SCREENING MAMMOGRAM 3D/2D: 08/25/2020 CLINICAL: Routine screening. Comparison is made to exams dated: 07/14/2019 mammogram - [facility], 07/13/2018 [facility], 06/23/2018 mammogram - [facility], 06/23/2018 mammogram - [facility], 04/22/2017 mammogram - [facility], and 04/22/2017 mammogram - [facility]. There are scattered fibroglandular elements in both breasts. There are benign calcifications in both breasts. There also are benign post operative findings in alfonso th breasts. No significant masses, calcifications, or other findings are seen in either breast. There has been no significant interval change. IMPRESSION: BENIGN There is no mammographic evidence of malignancy. A 1 year screening mammogram is recommended. This exam was interpreted at Station ID: [id number]. NOTE: For mammograms, a report in lay terms will be sent to the patient. Approximately 15% of breast malignancies will not be visualized mammographically. In the management of a palpable breast mass, a negative mammogram must not discourage biopsy of a clinically suspicious lesion. Electronically Signed By: Phil sauer/salud:08/25/2020 18:53:58 copy to: PIERRE MENDOZA copy to: MARILYNN GONZALEZ [facility] BI-RADS Category 2: Benign Finding(s) 3342F PARENCHYMAL PATTERN: (A) - The breast(s) demonstrate(s) scattered fibroglandular densities. BI-RADS CATEGORY: (2) - 2 RECOMMENDATION: (ANNUAL) - Recommend routine annual screening mammography. [id number] 1 year screening LATERALITY: (B)
== END 2020-08-25 15:34 | disposition home or self-care (01) ==
LOC: DI 15:33
PROVIDERS: ATTEND Nurse Practitioner
DX: Z12.31 Encounter for screening mammogram for malignant neoplasm of breast (principal)
CPT/HCPCS: 77063; 77067

== ENCOUNTER 2020-10-02 12:24 | Outpatient (CLI) | payer MEDICARE ==
--- NOTE | 2020-10-02 13:18 | SLEEP CARE CONSULTATION ---
Information from patient questionnaire entered by Yumi Cota. I have reviewed and concur with the information entered by Yumi Cota. This document represents the service I personally performed and the decisions made by , Danae Adams ARNP. History of Present Illness Service Date and Time: 10/02/2020 1224 Previous diagnosis: Moderate, Obstructive Sleep Apnea-Hypopnea Syndrome AHI: 15.1 (in 2003) Equipment type: CPAP Equipment obtained from: [employer] (getting supplies as needed) Mask style: Nasal Backup mask available: Yes (old mask) Last cushion change: 2 weeks ago Prior sleep studies: Yes Year and Where: 2003 - [facility] additional information: GAMAL GRAHAM was diagnosed to have moderate, AHI 15.1, obstructive sleep apnea-hypopnea syndrome and returned today for CPAP therapy annual follow-up. CPAP Compliance Data - Data Reviewed with Patient Average duration of nightly device use: 8.9 Compliance rate %: 93.3 (180 days) Current pressure setting (cmH2O): 8-12 Humidity settin Heated hose settin Average residual AHI: 2.7 Average large leak: 31 sec Subjective Missed days of use due to: reports: other (eye surgery) Patient concerns: denies: aerophagia, mask discomfort, air blowing in eyes, mask leak noise, condensation in mask/hose, nasal congestion, dry mouth, nose, throat, epistaxis, other Observed to snore while using device: No Current pressure setting perceived as: comfortable On therapy, patient: reports: sleeping better, awakening more refreshed, being more awake and alert during the day, more rested overall. denies: drowsiness while driving Initial [place] Sleepiness Scale score: 15 (in 2018) Current [place] Sleepiness Scale score: 7 Allergies and Home Medications Drug allergies reviewed: Yes (see list in chart) Home medication list reviewed: Yes (added mirtazapine, not allergic to this medication) Review of Systems Review of systems same as previous: Yes (no changes) Physical Exam Heart Rate: 62 O2 Saturation: 98 Height: 5 ft 4.25 in Weight: 184 lb Body Mass Index: 31.3 BMI Classification: Obese Impression and Plan 1. Obstructive Sleep Apnea-Hypopnea Syndrome, moderate, with good treatment compliance and good apnea control. On CPAP therapy, the patient has better sleep quality and is more rested overall. She has no complaints or issues. She is happy with her CPAP therapy. Patient has BMI is 31.3. Obesity increases the risk of apnea, CPAP pressure requirements and overall health risks especially cardiovascular and diabetes. Thus patient is advised to lose weight. Weight loss can be done with reducing portion size, reducing refined foods and balancing content with vegetables, fruit and whole grain foods. Patient's apnea severity and rationale for treatment to reduce apnea, improve sleep quality and reduce cardiovascular and cerebrovascular events was reviewed. I also reviewed the benefit of consistent device use of CPAP for hypertension and anxiety. * Continue auto CPAP pressure at 8-12 cmH2O * Notify me if snoring with mask or feeling that the pressure is too much or too little * Attempt to lose weight * Call this office if any problems using CPAP * Return for follow up in 1 year, or sooner if concerns arise Counseling Topics: Spare mask, Weight loss health impact Visit Type: In Office Time Spent with Patient (minutes): 19 Provider Statement: I spent 100% of the Face to Face Visit with the patient with greater than 50% spent counseling the patient and coordination of care.
== END 2020-10-02 12:25 | disposition home or self-care (01) ==
LOC: SC 12:24
PROVIDERS: ATTEND Nurse Practitioner Family
DX: G47.33 Obstructive sleep apnea (adult) (pediatric) (principal); E66.9 Obesity, unspecified; Z68.31 Body mass index [BMI] 31.0-31.9, adult
CPT/HCPCS: 99213; G0463; 99212

== ENCOUNTER 2020-12-01 14:55 | Outpatient (CLI) | payer MEDICARE ==
[2020-12-01] MEDS ORDERED: IOVERSOL 320 100 ML VIAL IVP ONE ×2 (15:16→16:57)
[2020-12-01] MEDS ORDERED: IOVERSOL 320 50 ML VIAL ONE (15:16)
[2020-12-01 16:08] LABS: CALCIUM 9.5 mg/dL (8.5-10.3); CREATININE 0.9 mg/dL (0.4-1.0)
[2020-12-01] MEDS ORDERED: IOVERSOL 320 50 ML VIAL PO ONE (16:58)
--- NOTE | 2020-12-01 17:21 | CT Report ---
PROCEDURE: Abdomen/Pelvis W INDICATIONS: ABD PAIN, LLQ CONTRAST: IV CONTRAST: Optiray 320 ml: 100 PO CONTRAST: Optiray 320 ml50 TECHNIQUE: After the administration of oral and IV contrast, 5 mm thick sections acquired from the diaphragms to the symphysis. 5 mm thick coronal and sagittal reformats were acquired. For radiation dose reducti on, the following was used: automated exposure control, adjustment of mA and/or kV according to daniel ent size. COMPARISON: 04/22/2016 FINDINGS: Image quality: Excellent. ABDOMEN: Lung bases: Small scattered patchy groundglass opacities at the left lung base and right middle lobe lung nodule have progressed since the prior study, the nodule now measures 8 mm, previously [address]a rt size is normal. Solid organs: There is hypertrophy of the left hepatic lobe. Mild diffuse hepatic hypodensity. No di screte mass or contour abnormality. The spleen is normal size and there is a splenule anteriorly and inferiorly. The gallbladder is partially decompressed. Adrenal glands and pancreas are normal. Intrar enal and ureteral collecting systems are slightly prominent bilaterally. A distended urinary bladder may account for this. Peritoneum and bowel: Bowel loops demonstrate normal wall thickness and caliber. Moderate descendin g, and extensive sigmoid diverticulosis without acute diverticulitis. No free fluid or air. Nodes and vessels: No retroperitoneal or mesenteric adenopathy by size criteria. Aorta and inferior vena cava are normal in size. Mild to moderate aortic calcification. Miscellaneous: No ventral hernias. PELVIS: Genitourinary: Bladder wall thickness is normal. Uterus is surgically absent. Miscellaneous: Tiny fat-containing left inguinal hernia. No pelvic adenopathy. Bones: Moderate degenerative changes at both sacroiliac joints. No suspicious bony lesions. No vert ebral body compression fractures. IMPRESSION: 1. Diverticulosis without acute diverticulitis. 2. Normal appendix. 3. Mild hepatic steatosis. 4. Slight increased size of right middle lobe lung nodule. Consider full diagnostic chest CT for full evaluation. Reviewed by: Viri Rachel MD on 12/01/2020 5:20 PM PST Approved by: Viri Rachel MD on 12/01/2020 5:20 PM PST Station ID: [id number]
== END 2020-12-01 14:56 | disposition home or self-care (01) ==
LOC: LAB 14:55
PROVIDERS: ATTEND Physician Assistant
DX: R73.01 Impaired fasting glucose (principal); K57.30 Diverticulosis of large intestine without perforation or abscess without bleeding; K76.0 Fatty (change of) liver, not elsewhere classified; R91.1 Solitary pulmonary nodule
CPT/HCPCS: 36415; 74177; 80048; Q9967

== ENCOUNTER 2020-12-20 12:21 | Outpatient (CLI) | payer MEDICARE ==
--- NOTE | 2020-12-20 17:17 | CT Report ---
PROCEDURE: CHEST WO INDICATIONS: ABNORMAL CT TECHNIQUE: Noncontrast 5 mm thick sections acquired from the pulmonary apices to the posterior costophrenic angl es. 7 mm thick coronal and sagittal MIP reformats were then acquired. For radiation dose reduction, the following was used: automated exposure control, adjustment of mA and/or kV according to patient size. COMPARISON: CT abdomen pelvis 12/01/2020 FINDINGS: Image quality: Excellent. Lungs and pleura: There are 2 nodules in the lower aspect of the right middle lobe, one measuring 5 mm, and the larger, medially measuring about 8 mm. Both appear solid. The smaller appears to be assoc iated with the distal bronchial. The larger has broad-based attachment to the right epicardial fat pa d. A juxta fissural nodule present in the right lateral major fissure is also noted. In the anterior aspect of the caudal left lower lobe, there are a few nodular densities which are clearly associated with focal small bronchial wall thickening resulting in appearance of nodules. These are best seen on series 4 image 209. 5 mm triangular shaped nodule is present in the costophrenic sulcus immediately adjacent. Pleural irregularity and slight subpleural interstitial thickening is seen along the anterolateral ri ght upper and middle lobes. No other airspace opacity, pleural effusion, or nodule. Mediastinum: Heart size is normal. No pericardial effusion. No mediastinal adenopathy by size crit eria. Thoracic aorta and central pulmonary arteries are normal in size. Esophagus is normal in carlito christie. No hiatal hernia. Bones and chest wall: Probable surgical changes and scarring in the upper right breast. No suspiciou s bony lesions. No vertebral body compression fractures. No axillary or supraclavicular adenopathy by size criteria. The thyroid is normal in size. Abdomen: Visualized upper abdominal solid organs and bowel loops appear normal in the absence of con trast. IMPRESSION: 1. Slight enlargement of probable airways associated nodules in the caudal right middle lobe may be e vidence of mucus plugging, minor chronic bronchitis or atypical infections such as DIANE. There is no p ostobstructive atelectatic change. 2. Stable appearance of airways associated left lower lung nodules. 3. Minor treatment-related fibrotic changes along the right anterolateral pleural surface. Reviewed by: Viri Rachel MD on 12/20/2020 5:15 PM PST Approved by: Viri Rachel MD on 12/20/2020 5:15 PM [facility] Station ID: [id number]
== END 2020-12-20 12:22 | disposition home or self-care (01) ==
LOC: DI 12:21
PROVIDERS: ATTEND Physician Assistant
DX: R91.8 Other nonspecific abnormal finding of lung field (principal)

== ENCOUNTER 2021-01-15 08:00 | Outpatient (CLI) | payer MEDICARE ==
[2021-01-15 12:36] LABS: CALCIUM 9.5 mg/dL (8.5-10.3); CREATININE 1.1 mg/dL (0.4-1.0); POTASSIUM 4.2 mmol/L (3.5-5.0)
[2021-01-15 12:51] LABS: ESTIMATED AVERAGE GLUCOSE 151 mg/dL (70-100); HEMOGLOBIN A1c% 6.9 % (4.27-6.07)
== END 2021-01-15 23:59 | disposition home or self-care (01) ==
LOC: LAB.WCP 08:00
PROVIDERS: ATTEND Nurse Practitioner
DX: R73.01 Impaired fasting glucose (principal)
CPT/HCPCS: 36415; 80048; 83036

== ENCOUNTER 2021-02-06 10:00 | Outpatient (CLI) | payer MEDICARE ==
[2021-02-06 12:30] LABS: ALBUMIN 3.3 g/dL (3.2-5.5); ALBUMIN/GLOBULIN RATIO 0.9 (1.0-2.2); BILIRUBIN,TOTAL 0.6 mg/dL (0.2-1.0); CALCIUM 9.6 mg/dL (8.5-10.3); POTASSIUM 4.4 mmol/L (3.5-5.0); TOTAL PROTEIN 6.9 g/dL (6.7-8.2)
[2021-02-06 18:30] LABS: CREATININE,URINE 20.3 mg/dL
[2021-02-06 19:00] LABS: MICROALBUMIN,URINE < 0.2 mg/dL (0-300.0)
== END 2021-02-06 23:59 | disposition home or self-care (01) ==
LOC: LAB.WCP 10:00
PROVIDERS: ATTEND Nurse Practitioner
DX: E11.9 Type 2 diabetes mellitus without complications (principal)
CPT/HCPCS: 36415; 80053; 82043; 82570

== ENCOUNTER 2021-05-14 08:00 | Outpatient (CLI) | payer MEDICARE ==
[2021-05-14 13:04] LABS: CREATININE,URINE 133.3 mg/dL; MICROALBUM/CREATININE RATIO,UR 18.8 ug/mg (<30.0); MICROALBUMIN,URINE 2.5 mg/dL (0-300.0)
[2021-05-14 13:50] LABS: ALBUMIN 3.8 g/dL (3.2-5.5); ALBUMIN/GLOBULIN RATIO 1.1 (1.0-2.2); BILIRUBIN,TOTAL 0.5 mg/dL (0.2-1.0); CALCIUM 9.7 mg/dL (8.5-10.3); CREATININE 1.2 mg/dL (0.4-1.0); POTASSIUM 4.1 mmol/L (3.5-5.0); TOTAL PROTEIN 7.4 g/dL (6.7-8.2)
[2021-05-14 14:04] LABS: ESTIMATED AVERAGE GLUCOSE 143 mg/dL (70-100); HEMOGLOBIN A1c% 6.6 % (4.27-6.07)
== END 2021-05-14 23:59 | disposition home or self-care (01) ==
LOC: LAB.WCP 08:00
PROVIDERS: ATTEND Internal Medicine
DX: E11.9 Type 2 diabetes mellitus without complications (principal)
CPT/HCPCS: 36415; 80053; 82043; 82570; 83036

== ENCOUNTER 2021-06-12 10:54 | Outpatient (CLI) | payer MEDICARE | END 2021-06-12 10:55 | disposition home or self-care (01) | LOC: NS 10:54 | PROVIDERS: ATTEND Internal Medicine | DX: Z71.3 Dietary counseling and surveillance (principal); E11.29 Type 2 diabetes mellitus with other diabetic kidney complication | CPT/HCPCS: 97802 ==

== ENCOUNTER 2021-06-25 08:00 | Outpatient (CLI) | payer MEDICARE ==
[2021-06-25 18:33] LABS: CALCIUM 10.4 mg/dL (8.5-10.3); CREATININE 1.1 mg/dL (0.4-1.0); POTASSIUM 4.6 mmol/L (3.5-5.0)
== END 2021-06-25 23:59 | disposition home or self-care (01) ==
LOC: LAB.WCP 08:00
PROVIDERS: ATTEND Family Medicine
DX: N18.31 Chronic kidney disease, stage 3a (principal)
CPT/HCPCS: 36415; 80048

== ENCOUNTER 2021-06-28 10:58 | Outpatient (CLI) | payer MEDICARE | END 2021-06-28 10:59 | disposition home or self-care (01) | LOC: NS 10:58 | PROVIDERS: ATTEND Internal Medicine | DX: Z71.3 Dietary counseling and surveillance (principal); E11.29 Type 2 diabetes mellitus with other diabetic kidney complication | CPT/HCPCS: 97803 ==

== ENCOUNTER 2021-07-18 10:39 | Outpatient (CLI) | payer MEDICARE ==
[2021-07-18 18:23] LABS: CALCIUM 9.9 mg/dL (8.5-10.3); POTASSIUM 4.2 mmol/L (3.5-5.0)
== END 2021-07-18 23:59 | disposition home or self-care (01) ==
LOC: LAB.WCP 10:39
PROVIDERS: ATTEND Family Medicine
DX: I12.9 Hypertensive chronic kidney disease with stage 1 through stage 4 chronic kidney disease, or unspecified chronic kidney disease (principal); N18.31 Chronic kidney disease, stage 3a
CPT/HCPCS: 36415; 80048

== ENCOUNTER 2021-07-18 14:51 | Outpatient (CLI) | payer MEDICARE ==
--- NOTE | 2021-07-18 15:25 | SLEEP CARE CONSULTATION ---
Information from patient questionnaire entered by Yumi Cota. I have reviewed and concur with the information entered by Yumi Cota. This document represents the service I personally performed and the decisions made by , Danae Adams ARNP. History of Present Illness Service Date and Time: 07/18/2021 1451 Previous diagnosis: Moderate, Obstructive Sleep Apnea-Hypopnea Syndrome AHI: 15.1 (in 2003) Reason for follow up: other (10 month - CPAP recall) Equipment type: CPAP Equipment obtained from: [facility] (getting supplies as needed) Mask style: Nasal Backup mask available: Yes (old mask) Last cushion change: not since recall Prior sleep studies: Yes Year and Where: 2003 - [facility] additional information: GAMAL GRAHAM was diagnosed to have moderate, AHI 15.1, obstructive sleep a pnea-hypopnea syndrome and returned today for CPAP therapy 10 month, CPAP recall follow-up. CPAP Compliance Data - Data Reviewed with Patient Average duration of nightly device use: 8 hr 47 min Compliance rate %: 86.7 (180 days) Current pressure setting (cmH2O): 8-12 Humidity settin Heated hose settin Average residual AHI: 1.5 Average large leak: 5 sec Subjective Missed days of use due to: reports: other (recall) Patient concerns: reports: other (coughing when using device since November). denies: aerophagia, mask discomfort, air blowing in eyes, mask leak noise, condensation in mask/hose, nasal congestion, dry mouth, nose, throat, epistaxis Observed to snore while using device: No Current pressure setting perceived as: comfortable On therapy, patient: reports: sleeping better, awakening more refreshed, being more awake and alert during the day, more rested overall. denies: drowsiness while driving Initial [place] Sleepiness Scale score: 15 (in 2018) Current [place] Sleepiness Scale score: 15 Allergies and Home Medications Home medication list reviewed: Yes Allergy and home medication list: Losartin Diltiazem ER Spironolactone Amlodipine Clonazepam Atorvastatin Allopurinol Amitriptyline Calcium + D Metformin Review of Systems Review of systems same as previous: No (Heart murmur; Diabetic) Physical Exam Heart Rate: 80 O2 Saturation: 96 Height: 5 ft 4 in Weight: 168 lb Body Mass Index: 28.8 BMI Classification: Overweight Impression and Plan 1. Obstructive Sleep Apnea-Hypopnea Syndrome, moderate, with good treatment compliance and good apnea control. On CPAP therapy, the patient has better sleep quality and is more rested overall. Patient has been having a cough that happens when she uses her CPAP machine since November. She said in November she did have a slight lung infection that was treated. Her cough did not completely resolve and seems to worsen when she uses her CPAP. When she learned about the recall she stopped using her CPAP in May. Patient has already registered their device for the recall. Patient denies any black particles seen in machine or hoses, any unusual odors coming from device. Patient has experienced some coughing when she uses her device since November. Patient talked to someone from her insurance who told her with a prescription she could probably get her recalled device replaced. Patient voiced understanding and agreement with plan. Patient's apnea severity and rationale for treatment to reduce apnea, improve sleep quality and reduce cardiovascular and cerebrovascular events was reviewed. I also reviewed the benefit of consistent device use of CPAP for hypertension and anxiety. * Continue auto CPAP pressure at 8-12 cmH2O * Replacement of CPAP device that is on recall due to upper airway irritation/ unable to use device * Notify me if snoring with mask or feeling that the pressure is too much or too little * Attempt to lose weight * Call this office if any problems using CPAP * Return for follow up one month after getting new device, or sooner if concerns arise Counseling Topics: Spare mask, Weight loss health impact Visit Type: In Office Time Spent with Patient (minutes): 21 Provider Statement: I spent 100% of the Face to Face Visit with the patient with greater than 50% spent counseling the patient and coordination of care.
== END 2021-07-18 14:52 | disposition home or self-care (01) ==
LOC: SC 14:51
PROVIDERS: ATTEND Nurse Practitioner Family
DX: G47.33 Obstructive sleep apnea (adult) (pediatric) (principal); I12.9 Hypertensive chronic kidney disease with stage 1 through stage 4 chronic kidney disease, or unspecified chronic kidney disease; N18.31 Chronic kidney disease, stage 3a
CPT/HCPCS: 36415; 80048; 99213; G0463; 99212

== ENCOUNTER 2021-08-28 13:50 | Outpatient (CLI) | payer MEDICARE ==
--- NOTE | 2021-08-29 10:09 | Mammography Report ---
BILATERAL DIGITAL SCREENING MAMMOGRAM 3D/2D: 08/28/2021 CLINICAL: Routine screening. Personal history of right breast cancer. Comparison is made to exams dated: 08/25/2020 mammogram, 08/25/2020 mammogram, 07/14/2019 mammogram - [facility], 07/13/2018 ultrasound, 07/13/2018 mammogram - [facility], and 8 mammogram - [facility]. There are scattered fibroglandular elements in both zachary sts. There are benign calcifications in both breasts. There also are benign post operative findings in alfonso th breasts. No significant masses, calcifications, or other findings are seen in either breast. There has been no significant interval change. IMPRESSION: BENIGN There is no mammographic evidence of malignancy. A 1 year screening mammogram is recommended. This exam was interpreted at Station ID: [id number]. NOTE: For mammograms, a report in lay terms will be sent to the patient. Approximately 15% of breast malignancies will not be visualized mammographically. In the management of a palpable breast mass, a negative mammogram must not discourage biopsy of a clinically suspicious lesion. Electronically Signed By: Dave Bergeron acr/penrad:08/28/2021 16:51:57 copy to: PIERRE MENDOZA copy to: MARILYNN GONZALEZ [facility] BI-RADS Category 2: Benign Finding(s) 3342F PARENCHYMAL PATTERN: (A) - The breast(s) demonstrate(s) scattered fibroglandular densities. BI-RADS CATEGORY: (2) - 2 RECOMMENDATION: (ANNUAL) - Recommend routine annual screening mammography. [id number] 1 year screening LATERALITY: (B)
== END 2021-08-28 13:51 | disposition home or self-care (01) ==
LOC: DI 13:50
DX: Z12.31 Encounter for screening mammogram for malignant neoplasm of breast (principal); Z08 Encounter for follow-up examination after completed treatment for malignant neoplasm; Z85.3 Personal history of malignant neoplasm of breast

== ENCOUNTER 2021-08-30 10:59 | Outpatient (CLI) | payer MEDICARE | END 2021-08-30 11:00 | disposition home or self-care (01) | LOC: NS 10:59 | PROVIDERS: ATTEND Internal Medicine | DX: Z71.3 Dietary counseling and surveillance (principal); E11.29 Type 2 diabetes mellitus with other diabetic kidney complication | CPT/HCPCS: 97803 ==

== ENCOUNTER 2021-10-23 08:00 | Outpatient (CLI) | payer MEDICARE ==
[2021-10-23 12:38] LABS: BUN - BLOOD UREA NITROGEN 24 mg/dL (6-20); CALCIUM 9.8 mg/dL (8.5-10.3); CARBON DIOXIDE - CO2 28 mmol/L (21-32); CHLORIDE 99 mmol/L (101-111); CHOL/HDL RATIO 5.1 (<4.4); CHOLESTEROL 127 mg/dL; CREATININE 0.9 mg/dL (0.4-1.0); GFR - MDRD 61 (>89); GLUCOSE 99 mg/dL (70-100); HDL CHOLESTEROL 25 mg/dL; LDL CHOLESTEROL,CALCULATED 81 mg/dL; LDL/HDL RATIO 3.2 (<4.4); POTASSIUM 4.2 mmol/L (3.5-5.0); SODIUM 135 mmol/L (135-145); TRIGLYCERIDES 105 mg/dL; URIC ACID 5.5 mg/dL (2.6-7.2); VLDL CHOLESTEROL 21 mg/dL
[2021-10-23 12:48] LABS: CREATININE,URINE 39.1 mg/dL; MICROALBUMIN,URINE 1.8 mg/dL (0-300.0)
[2021-10-23 13:13] LABS: ESTIMATED AVERAGE GLUCOSE 123 mg/dL (70-100); HEMOGLOBIN A1c% 5.9 % (4.27-6.07)
== END 2021-10-23 23:59 | disposition home or self-care (01) ==
LOC: LAB.WCP 08:00
PROVIDERS: ATTEND Internal Medicine
DX: E11.22 Type 2 diabetes mellitus with diabetic chronic kidney disease (principal); N18.31 Chronic kidney disease, stage 3a; M10.9 Gout, unspecified
CPT/HCPCS: 36415; 80048; 80061; 82043; 82570; 83036; 83721; 84550

== ENCOUNTER 2021-11-01 10:52 | Outpatient (CLI) | payer MEDICARE | END 2021-11-01 10:53 | disposition home or self-care (01) | LOC: NS 10:52 | PROVIDERS: ATTEND Internal Medicine | DX: Z71.3 Dietary counseling and surveillance (principal); E11.29 Type 2 diabetes mellitus with other diabetic kidney complication | CPT/HCPCS: 97803 ==

== ENCOUNTER 2022-02-04 08:06 | Outpatient (CLI) | payer MEDICARE ==
[2022-02-04 12:12] LABS: CREATININE,URINE 89.8 mg/dL; MICROALBUM/CREATININE RATIO,UR 7.8 ug/mg (<30.0); MICROALBUMIN,URINE 0.7 mg/dL (0-300.0)
[2022-02-04 13:03] LABS: ESTIMATED AVERAGE GLUCOSE 131 mg/dL (70-100); HEMOGLOBIN A1c% 6.2 % (4.27-6.07)
[2022-02-04 13:17] LABS: CALCIUM 9.6 mg/dL (8.5-10.3); POTASSIUM 3.7 mmol/L (3.5-5.0)
== END 2022-02-04 08:07 | disposition home or self-care (01) ==
LOC: LAB.N 08:06
PROVIDERS: ATTEND Internal Medicine
DX: I10 Essential (primary) hypertension (principal); E11.29 Type 2 diabetes mellitus with other diabetic kidney complication
CPT/HCPCS: 36415; 80048; 82043; 82570; 83036

== ENCOUNTER 2022-05-02 08:00 | Outpatient (CLI) | payer MEDICARE ==
[2022-05-02 11:39] LABS: BILIRUBIN,URINE NEGATIVE (NEGATIVE); GLUCOSE, URINE (UA) NEGATIVE (NEGATIVE); KETONES,URINE (UA) NEGATIVE (NEGATIVE); LEUKOCYTE ESTERASE, URINE SMALL (NEGATIVE); NITRITE,URINE NEGATIVE (NEGATIVE); OCCULT BLOOD,URINE NEGATIVE (NEGATIVE); PROTEIN,URINE NEGATIVE (NEGATIVE); UROBILINOGEN,URINE 0.2 (NORMAL) E.U./dL (NORMAL)
[2022-05-02 11:43] LABS: CLARITY,URINE HAZY (CLEAR); RBC,URINE None Seen /HPF (0-5); SQUAMOUS EPITHELIAL CELL,UR NONE SEEN (<= Few); WBC CLUMPS,URINE PRESENT
[2022-05-02 11:44] LABS: BACTERIA,URINE Few /HPF (None Seen)
== END 2022-05-02 23:59 | disposition home or self-care (01) ==
LOC: LAB.N 08:00
PROVIDERS: ATTEND Internal Medicine
DX: R10.9 Unspecified abdominal pain (principal)
CPT/HCPCS: 81001; 87086

== ENCOUNTER 2022-06-18 08:08 | Outpatient (CLI) | payer MEDICARE ==
[2022-06-18 13:04] LABS: CALCIUM 10.1 mg/dL (8.5-10.3); CREATININE 0.9 mg/dL (0.4-1.0); POTASSIUM 3.8 mmol/L (3.5-5.0)
[2022-06-18 14:19] LABS: ESTIMATED AVERAGE GLUCOSE 126 mg/dL (70-100)
== END 2022-06-18 08:09 | disposition home or self-care (01) ==
LOC: LAB.N 08:08
PROVIDERS: ATTEND Internal Medicine
DX: E11.29 Type 2 diabetes mellitus with other diabetic kidney complication (principal)
CPT/HCPCS: 36415; 80048; 83036

== ENCOUNTER 2022-09-12 11:28 | Outpatient (CLI) | payer MEDICARE ==
--- NOTE | 2022-09-13 10:17 | Mammography Report ---
BILATERAL DIGITAL SCREENING MAMMOGRAM 3D/2D: 09/12/2022 CLINICAL: Routine screening. Comparison is made to exams dated: 08/28/2021 mammogram, 08/25/2020 mammogram, 08/25/2020 mammogram, [facility]ogram - [facility], 06/23/2018 mammogram - [facility], and 07/13/2018 mammogram - [facility]. There are scattered areas of fibroglandular density in both breasts (category b / 25%-50% glandular t issue). There are benign calcifications in both breasts. There also are benign post operative findings in alfonso th breasts. No significant masses, calcifications, or other findings are seen in either breast. There has been no significant interval change. IMPRESSION: BENIGN There is no mammographic evidence of malignancy. A 1 year screening mammogram is recommended. This exam was interpreted at Station ID: [id number]. NOTE: For mammograms, a report in lay terms will be sent to the patient. Approximately 15% of breast malignancies will not be visualized mammographically. In the management of a palpable breast mass, a negative mammogram must not discourage biopsy of a clinically suspicious lesion. Electronically Signed By: Phil Avalos M.D. aty/penrad:09/12/2022 21:56:26 copy to: PIERRE MENDOZA copy to: MARILYNN GONZALEZ [facility] BI-RADS Category 2: Benign Finding(s) 3342F PARENCHYMAL PATTERN: (A) - The breast(s) demonstrate(s) scattered fibroglandular densities. BI-RADS CATEGORY: (2) - 2 RECOMMENDATION: (ANNUAL) - Recommend routine annual screening mammography. [id number] 1 year screening LATERALITY: (B)
== END 2022-09-12 11:29 | disposition home or self-care (01) ==
LOC: DI 11:28
DX: Z12.31 Encounter for screening mammogram for malignant neoplasm of breast (principal)

== ENCOUNTER 2022-09-23 08:00 | Outpatient (CLI) | payer MEDICARE | END 2022-09-23 23:59 | disposition home or self-care (01) | LOC: LAB.WCP 08:00 | PROVIDERS: ATTEND Physician Assistant | DX: R30.0 Dysuria (principal) | CPT/HCPCS: 87077; 87086; 87181 ==

== ENCOUNTER 2022-11-05 15:50 | Outpatient (CLI) | payer MEDICARE ==
[2022-11-05 15:41] VITALS: BP 146/54
--- NOTE | 2022-11-05 15:41 | SLEEP CARE CONSULTATION ---
Information from patient questionnaire entered by Leora Tobar. I have reviewed and concur with the information entered by Leora Tobar. This document represents the service I personally performed and the decisions made by me, Danae Adams ARNP. History of Present Illness Service Date and Time: 11/05/2022 1520 Previous diagnosis: Moderate, Obstructive Sleep Apnea-Hypopnea Syndrome AHI: 15.1 (in 2003) Reason for follow up: annual (LAST SEEN 07/2021) Equipment type: CPAP (DREAMSTATION 2) Equipment obtained from: [facility] (getting supplies as needed) Mask style: Nasal Mask brand: Resmed (AirFit [id number]) Backup mask available: Yes (old mask) Last cushion change: last week Prior sleep studies: Yes Year and Where: [facility] [place] [facility] additional information: GAMAL GRAHAM was diagnosed to have moderate, AHI 15.1, obstructive sleep apnea-hypopnea syndrome and return via video telehealth visit today for CPAP therapy annual follow-up. Sleep Study - Results Prior sleep studies: Yes Year and Where: [address] [place] [address] in [place], [place] CPAP Compliance Data - Data Reviewed with Patient Average duration of nightly device use: 7 HRS, 28 MIN, 49SEC Compliance rate %: 98.3 (05/08/22-11/03/22; 177/180 days used) Current pressure setting (cmH2O): 8-12 Average residual AHI: 1.4 Central apnea: 0.1 Obstructive apnea: 0.3 Average large leak: 0 Subjective Missed days of use due to: reports: other (nights of insomnia, not sleeping) Patient concerns: denies: aerophagia, mask discomfort, air blowing in eyes, mask leak noise, condensation in mask/hose, nasal congestion, dry mouth, nose, throat, epistaxis Observed to snore while using device: No Current pressure setting perceived as: comfortable On therapy, patient: reports: sleeping better, awakening more refreshed, being more awake and alert during the day, more rested overall. denies: drowsiness while driving Initial [place] Sleepiness Scale score: 15 (in 2018) Current [place] Sleepiness Scale score: 7 (11/05/22) Allergies and Home Medications Drug allergies reviewed: Yes (as listed in EMR) Home medication list reviewed: Yes (no changes) Review of Systems Review of systems same as previous: No (diabetes) Physical Exam Vital signs obtained and entered by: LEORA Phelps MA Blood Pressure: 146/54 (PER) Height: 5 ft 4 in (PER PT) Weight: 170 lb (PER PT) Body Mass Index: 29.2 BMI Classification: Overweight Impression and Plan 1. Obstructive Sleep Apnea-Hypopnea Syndrome, moderate, with good treatment compliance and good apnea control. On CPAP therapy, the patient has better sleep quality and is more rested overall. Patient has significant improvement of their sleep apnea and are satisfied with current CPAP therapy. Patient denies problems with oral dryness, nasal congestion, epistaxis, skin irritation or aerophagia. Patient states that she received her DreamStation 2 about a year ago. There is a noise coming from the machine when she is breathing through her mask. She took it to her DME, [employer], and they checked it out thoroughly but could not find any reason for this noise and it is working well. She has since purchased a noise wilma that she uses in her bedroom. Otherwise she really likes her new DreamStation 2. Patient's apnea severity and rationale for treatment to reduce apnea, improve sleep quality and reduce cardiovascular and cerebrovascular events was reviewed. I also reviewed the benefit of consistent device use of CPAP for hypertension, diabetes and anxiety. 2. Overweight, unspecified. Currently patients BMI is 29.2. She has lost some weight. Obesity increases the risk of apnea, CPAP pressure requirements and overall health risks especially cardiovascular and diabetes. Thus patient is advised to lose weight. * Continue auto CPAP pressure at 8-12 cmH2O * Update supplies * Notify me if snoring with mask or feeling that the pressure is too much or too little * Attempt to lose weight * Call this office if any problems using CPAP * Return for follow up in 1 year, or sooner if concerns arise Counseling Topics: Spare mask, Weight loss health impact Visit Type: Telehealth Video Video Type: Doximity Patient Location: Home Location of Provider: Office Patient agrees and consents to this telehealth visit type: Yes Patient agrees to have their insurance billed: Yes Time Spent with Patient (minutes): 15 Provider Statement: I spent 100% of the Telehealth Video Call with the patient with greater than 50% spent counseling the patient and coordination of care.
== END 2022-11-05 15:51 | disposition home or self-care (01) ==
LOC: SC 15:50
PROVIDERS: ATTEND Nurse Practitioner Family
DX: G47.33 Obstructive sleep apnea (adult) (pediatric) (principal); E66.3 Overweight; Z68.29 Body mass index [BMI] 29.0-29.9, adult

== ENCOUNTER 2022-12-11 08:12 | Outpatient (CLI) | payer MEDICARE ==
[2022-12-11 11:54] LABS: BASOPHILS % (AUTO) 0.5 %; EOSINOPHILS # (AUTO) 0.2 10^3/uL (0.0-0.7); EOSINOPHILS % (AUTO) 2.7 %; HCT - HEMATOCRIT 42.6 % (37.0-47.0); HGB - HEMOGLOBIN 13.5 g/dL (12.0-16.0); LYMPHOCYTES % (AUTO) 37.6 %; MEAN CORPUSCULAR HEMOGLOBIN 29.5 pg (27.0-31.0); MEAN CORPUSCULAR HGB CONC 31.7 g/dL (32.0-36.0); MEAN PLATELET VOLUME 10.6 fL (7.9-10.8); MONOCYTES # (AUTO) 0.8 10^3/uL (0.0-1.0); MONOCYTES % (AUTO) 9.5 %; NEUTROPHILS % (AUTO) 49.3 %; PLT - PLATELET COUNT 253 10^3/uL (130-450); RED BLOOD COUNT 4.58 10^6/uL (4.20-5.40); RED CELL DISTRIBUTION WIDTH 13.4 % (12.0-15.0); WHITE BLOOD COUNT 8.1 x10^3/uL (4.8-10.8)
[2022-12-11 12:14] LABS: ESTIMATED AVERAGE GLUCOSE 128 mg/dL (70-100); HEMOGLOBIN A1c% 6.1 % (4.27-6.07)
[2022-12-11 12:23] LABS: ALBUMIN 3.3 g/dL (3.2-5.5); ALKALINE PHOSPHATASE 54 IU/L (42-121); ALT ALANINE AMINOTRANSFERASE 18 IU/L (10-60); AST ASPARTATE AMINOTRANSFERASE 15 IU/L (10-42); BILIRUBIN,TOTAL 0.5 mg/dL (0.2-1.0); BUN - BLOOD UREA NITROGEN 23 mg/dL (6-20); CALCIUM 9.8 mg/dL (8.5-10.3); CARBON DIOXIDE - CO2 30 mmol/L (21-32); CHLORIDE 107 mmol/L (101-111); CHOL/HDL RATIO 4.3 (<4.4); CHOLESTEROL 132 mg/dL; CREATININE 0.9 mg/dL (0.4-1.0); GFR - MDRD 60 (>89); GLUCOSE 103 mg/dL (70-100); HDL CHOLESTEROL 31 mg/dL; LDL CHOLESTEROL,CALCULATED 74 mg/dL; LDL/HDL RATIO 2.4 (<4.4); POTASSIUM 3.9 mmol/L (3.5-5.0); SODIUM 142 mmol/L (135-145); TOTAL PROTEIN 6.7 g/dL (6.7-8.2); TRIGLYCERIDES 135 mg/dL; URIC ACID 5.2 mg/dL (2.6-7.2); VLDL CHOLESTEROL 27 mg/dL
[2022-12-11 13:25] LABS: THYROID STIMULATING HORMONE 3.7 uIU/mL (0.34-5.60)
[2022-12-11 14:08] LABS: CREATININE,URINE 61.2 mg/dL; MICROALBUM/CREATININE RATIO,UR 8.2 ug/mg (<30.0); MICROALBUMIN,URINE 0.5 mg/dL (0-300.0)
== END 2022-12-11 08:13 | disposition home or self-care (01) ==
LOC: LAB.N 08:12
PROVIDERS: ATTEND Internal Medicine
DX: E11.29 Type 2 diabetes mellitus with other diabetic kidney complication (principal); M10.9 Gout, unspecified; I10 Essential (primary) hypertension; F41.9 Anxiety disorder, unspecified; F32.A Depression, unspecified
CPT/HCPCS: 36415; 80053; 80061; 82043; 82570; 83036; 83721; 84443; 84550; 85025

== ENCOUNTER 2023-02-18 08:50 | Outpatient (CLI) | payer MEDICARE ==
[2023-02-18 11:44] LABS: EOSINOPHILS % (AUTO) 0.5 %; HCT - HEMATOCRIT 35.1 % (37.0-47.0); HGB - HEMOGLOBIN 11.4 g/dL (12.0-16.0); LYMPHOCYTES # (AUTO) 0.9 10^3/uL (1.5-3.5); LYMPHOCYTES % (AUTO) 21.7 %; MEAN CORPUSCULAR HEMOGLOBIN 30.6 pg (27.0-31.0); MEAN CORPUSCULAR HGB CONC 32.5 g/dL (32.0-36.0); MEAN CORPUSCULAR VOLUME 94.4 fL (81.0-99.0); MONOCYTES # (AUTO) 0.5 10^3/uL (0.0-1.0); MONOCYTES % (AUTO) 11.4 %; NEUTROPHILS # (AUTO) 2.7 10^3/uL (1.5-6.6); NEUTROPHILS % (AUTO) 64.4 %; PLT - PLATELET COUNT 273 10^3/uL (130-450); RED BLOOD COUNT 3.72 10^6/uL (4.20-5.40); RED CELL DISTRIBUTION WIDTH 16.8 % (12.0-15.0); WHITE BLOOD COUNT 4.1 x10^3/uL (4.8-10.8)
[2023-02-18 12:15] LABS: ALBUMIN 2.4 g/dL (3.2-5.5); ALBUMIN/GLOBULIN RATIO 0.6 (1.0-2.2); BILIRUBIN,TOTAL 0.7 mg/dL (0.2-1.0); CALCIUM 9.1 mg/dL (8.5-10.3); CREATININE 0.9 mg/dL (0.4-1.0); POTASSIUM 3.6 mmol/L (3.5-5.0); TOTAL PROTEIN 6.6 g/dL (6.7-8.2)
== END 2023-02-18 08:51 | disposition home or self-care (01) ==
LOC: LAB.N 08:50
PROVIDERS: ATTEND Physician Assistant
DX: E87.6 Hypokalemia (principal); D70.2 Other drug-induced agranulocytosis; R19.7 Diarrhea, unspecified
CPT/HCPCS: 36415; 80053; 83735; 85025

== ENCOUNTER 2023-04-23 07:35 | Outpatient (CLI) | payer MEDICARE ==
[2023-04-23 11:47] LABS: ALBUMIN 2.7 g/dL (3.2-5.5); ALBUMIN/GLOBULIN RATIO 0.7 (1.0-2.2); BASOPHILS % (AUTO) 0.5 %; BILIRUBIN,TOTAL 0.8 mg/dL (0.2-1.0); CALCIUM 9.1 mg/dL (8.5-10.3); CREATININE 0.8 mg/dL (0.4-1.0); EOSINOPHILS # (AUTO) 0.2 10^3/uL (0.0-0.7); EOSINOPHILS % (AUTO) 3.9 %; HCT - HEMATOCRIT 37.1 % (37.0-47.0); HGB - HEMOGLOBIN 11.6 g/dL (12.0-16.0); LYMPHOCYTES # (AUTO) 1.3 10^3/uL (1.5-3.5); LYMPHOCYTES % (AUTO) 20.6 %; MEAN CORPUSCULAR HEMOGLOBIN 31.4 pg (27.0-31.0); MEAN CORPUSCULAR HGB CONC 31.3 g/dL (32.0-36.0); MEAN CORPUSCULAR VOLUME 100.3 fL (81.0-99.0); MEAN PLATELET VOLUME 9.8 fL (7.9-10.8); MONOCYTES # (AUTO) 0.8 10^3/uL (0.0-1.0); MONOCYTES % (AUTO) 12.6 %; NEUTROPHILS # (AUTO) 3.8 10^3/uL (1.5-6.6); NEUTROPHILS % (AUTO) 62.1 %; PLT - PLATELET COUNT 183 10^3/uL (130-450); POTASSIUM 3.8 mmol/L (3.5-5.0); RED CELL DISTRIBUTION WIDTH 15.8 % (12.0-15.0); TOTAL PROTEIN 6.5 g/dL (6.7-8.2); WHITE BLOOD COUNT 6.1 x10^3/uL (4.8-10.8)
[2023-04-23 11:55] LABS: ESTIMATED AVERAGE GLUCOSE 103 mg/dL (70-100); HEMOGLOBIN A1c% 5.2 % (4.27-6.07)
== END 2023-04-23 07:36 | disposition home or self-care (01) ==
LOC: LAB.N 07:35
PROVIDERS: ATTEND Internal Medicine
DX: I10 Essential (primary) hypertension (principal); E11.29 Type 2 diabetes mellitus with other diabetic kidney complication
CPT/HCPCS: 36415; 80053; 83036; 85025

== ENCOUNTER 2023-07-22 07:53 | Outpatient (CLI) | payer MEDICARE ==
[2023-07-22 08:26] LABS: CREATININE 0.9 mg/dL (0.6-1.3)
--- NOTE | 2023-07-22 12:02 | MRI Report ---
PROCEDURE: LUMBAR SPINE W/WO INDICATIONS: LEFT SCIATICA, ANAL CANAL SQUAMOUS CELL CA CONTRAST: gadavist 7.2ml TECHNIQUE: Noncontrast sagittal T1 spin echo and T2 fast spin echo, sagittal STIR, axial T1 and T2 fast spin ech o through the lumbar spine. In cases with scoliosis, additional coronal T2 fast spin echo may be per formed. After the administration of contrast, sagittal and axial T1 spin echo with fat saturation th rough the lumbar spine. COMPARISON: None. FINDINGS: Image quality: Excellent. Alignment and curvature: There is trace retrolisthesis of L2 on L3, trace anterolisthesis of L4 on L 5. Marrow: Marrow is of normal overall signal. No acute vertebral body compression fractures. No susp icious marrow enhancement. Spinal cord: Conus medullaris terminates at the L1 level. Visualized spinal cord demonstrates shira l signal, without suspicious enhancement. Paraspinous soft tissues: No paravertebral masses or abnormal enhancement. Increased T2 signal is p resent within the right kidney most suggestive of simple cyst. Discs Multilevel moderate disc desiccation. T12-L1: No disc bulge, spinal stenosis or foraminal narrowing. L1-L2: No disc bulge, spinal stenosis or foraminal narrowing. Mild facet and ligamentum flavum hyp ertrophy. L2-L3: Mild disc bulge with minimal canal narrowing. Foramina are patent. Facet and ligamentum fla vum hypertrophy are present. L3-L4: Mild disc bulge with minimal canal narrowing. No foraminal narrowing. Facet and ligamentum f lavum hypertrophy are present. L4-L5: Mild disc bulge with moderate to severe spinal stenosis and canal compression. Mild to moder ate bilateral foraminal narrowing with facet and ligamentum flavum hypertrophy. L5-S1: Mild disc bulge without spinal stenosis. Minimal to mild left foraminal narrowing. Facet an d ligamentum flavum hypertrophy are present. IMPRESSION: Multilevel disc bulges. Multilevel spinal stenosis most severe at L4-5 secondary to disc bulge with contributing effect of fa cet/ligament of flavum arthropathy. Mild to moderate foraminal narrowing most notable at L4-5 secondary to facet/ligament of flavum arthr opathy. Reviewed by: Nadine Cavazos MD on 07/22/2023 12:00 PM PDT Approved by: Nadine Cavazos MD on 07/22/2023 12:00 PM PDT Station ID: [id number]
== END 2023-07-22 07:54 | disposition home or self-care (01) ==
LOC: LAB 07:53
PROVIDERS: ATTEND Physician Assistant
DX: M51.36 Other intervertebral disc degeneration, lumbar region (principal); M48.061 Spinal stenosis, lumbar region without neurogenic claudication; M51.37 Other intervertebral disc degeneration, lumbosacral region; M48.07 Spinal stenosis, lumbosacral region; M47.816 Spondylosis without myelopathy or radiculopathy, lumbar region; M47.817 Spondylosis without myelopathy or radiculopathy, lumbosacral region
CPT/HCPCS: 36415; 72158; 82565; A9585

== ENCOUNTER 2023-10-06 13:29 | Outpatient (CLI) | payer MEDICARE ==
--- NOTE | 2023-10-08 15:36 | Mammography Report ---
BILATERAL DIGITAL SCREENING MAMMOGRAM 3D/2D: 10/06/2023 CLINICAL: Routine screening. Personal history of right breast cancer. Comparison is made to exams dated: 09/12/2022 mammogram, 08/28/2021 mammogram, 08/25/2020 mammogram, 07/14/2019 mammogram - [facility], and 06/23/2018 mammogram - [facility]. There are scattered areas of fibroglandular density in both breasts (category b / 25%-50% glandular t issue). There are benign post operative findings in both breasts. No significant masses, calcifications, or other findings are seen in either breast. IMPRESSION: BENIGN There is no mammographic evidence of malignancy. A 1 year screening mammogram is recommended. This exam was interpreted at Station ID: [id number]. NOTE: For mammograms, a report in lay terms will be sent to the patient. Approximately 15% of breast malignancies will not be visualized mammographically. In the management of a palpable breast mass, a negative mammogram must not discourage biopsy of a clinically suspicious lesion. Electronically Signed By: Iesha Montgomery M.D., PH.D /penrad:10/07/2023 22:57:48 copy to: PIERRE MENDOZA copy to: MARILYNN GONZALEZ letter sent: No_Letter ACR BI-RADS Category 2: Benign Finding(s) 3342F PARENCHYMAL PATTERN: (A) - The breast(s) demonstrate(s) scattered fibroglandular densities. BI-RADS CATEGORY: (2) - 2 Mammogram [id number] 1 year screening LATERALITY: (B)
== END 2023-10-06 13:30 | disposition home or self-care (01) ==
LOC: DI 13:29
DX: Z12.31 Encounter for screening mammogram for malignant neoplasm of breast (principal); Z85.3 Personal history of malignant neoplasm of breast; R92.323 Mammographic fibroglandular density, bilateral breasts

== ENCOUNTER 2023-10-13 08:16 | Outpatient (CLI) | payer MEDICARE | END 2023-10-13 08:17 | disposition home or self-care (01) | LOC: LAB.N 08:16 | PROVIDERS: ATTEND Internal Medicine | DX: Z53.9 Procedure and treatment not carried out, unspecified reason (principal) ==

== ENCOUNTER 2023-11-05 12:41 | Outpatient (CLI) | payer MEDICARE ==
--- NOTE | 2023-11-05 13:09 | Sleep Patient Instructions ---
Sleep Center Visit Summary - Patient Visit Information Reason for Visit: Annual Visit - Patient Instructions Additional Instructions: You will continue with CPAP therapy with pressure set at 8-12 cmH2O. A supply prescription will be updated with your DME. We encourage you to continue to try to lose weight. Please follow up with the sleep care office in 1 year. - Clinic Information Contact: [facility] [address] [place] [address] [email or web address] T: [phone]
--- NOTE | 2023-11-05 13:12 | SLEEP CARE CONSULTATION ---
Information from patient questionnaire entered by Leora Tobar. I have reviewed and concur with the information entered by Leora Tobar. This document represents the service I personally performed and the decisions made by me, Danae Adams ARNP. History of Present Illness Service Date and Time: 11/05/2023 1241 Previous diagnosis: Moderate, Obstructive Sleep Apnea-Hypopnea Syndrome AHI: 15.1 (in 2003) Reason for follow up: annual (LAST SEEN 10/2022) Equipment type: CPAP (DREAMSTATION 2) Equipment obtained from: [facility] (getting supplies as needed) Mask style: Nasal Backup mask available: Yes Last cushion change: 2 weeks Prior sleep studies: Yes Year and Where: 2003 - [facility] in [facility] additional information: GAMAL GRAHAM was diagnosed to have moderate, AHI 15.1, obstructive sleep apnea-hypopnea syndrome and returned today for CPAP therapy annual follow-up. Sleep Study - Results Prior sleep studies: Yes Year and Where: [address] [place] [address] in [place], [place] CPAP Compliance Data - Data Reviewed with Patient Average duration of nightly device use: 7 HRS 27 MINS 43 SECS Compliance rate %: 88.5 (11/03/2022-; 335/365 days used) Current pressure setting (cmH2O): 8-12 Average residual AHI: 1.2 Central apnea: 0.1 Obstructive apnea: 0.1 Hypopnea: 0.8 Average large leak: 14 secs Subjective Patient concerns: denies: aerophagia, mask discomfort, air blowing in eyes, mask leak noise, condensation in mask/hose, nasal congestion, dry mouth, nose, throat, epistaxis Observed to snore while using device: No Current pressure setting perceived as: comfortable On therapy, patient: reports: sleeping better, awakening more refreshed, being more awake and alert during the day, more rested overall. denies: drowsiness while driving Initial [place] Sleepiness Scale score: 15 (in 2018) Current [place] Sleepiness Scale score: 6 () Allergies and Home Medications Known drug allergies: Yes (as listed) Drug allergies reviewed: Yes Home medication list reviewed: Yes (updated in EMR) Allergy and home medication list: Allergies lamotrigine Allergy (Verified 11/04/23 08:57) Unknown mirtazapine Allergy (Verified 11/04/23 08:57) Unknown adhesive tape Adverse Reaction (Verified 11/04/23 08:57) Rash losartan Adverse Reaction (Verified 11/04/23 08:57) Respiratory terazosin Adverse Reaction (Verified 11/04/23 08:57) Respiratory Review of Systems Review of systems same as previous: No (ANAL CANCER) Physical Exam Vital signs obtained and entered by: LEORA Phelps MA Blood Pressure: 143/56 (RIGHT ARM) Cuff size: regular Heart Rate: 73 O2 Saturation: 95 Height: 5 ft 4 in Weight: 170 lb Body Mass Index: 29.2 BMI Classification: Overweight Impression and Plan 1. Obstructive Sleep Apnea-Hypopnea Syndrome, moderate, with good treatment compliance and good apnea control. On CPAP therapy, the patient has better sleep quality and is more rested overall. Patient was diagnosed with anal cancer and has been through radiation and chemotherapy with shrinkage of her tumor. She states she is doing well right now. Patient has significant improvement of their sleep apnea and is satisfied with current CPAP therapy. Patient denies problems with oral dryness, nasal congestion, epistaxis, skin irritation or aerophagia. Patient's apnea severity and rationale for treatment to reduce apnea, improve sleep quality and reduce cardiovascular and cerebrovascular events was reviewed. I also reviewed the benefit of consistent device use of CPAP for hypertension, diabetes and anxiety. 2. Overweight, unspecified. Currently patients BMI is 29.2. Obesity increases the risk of apnea, CPAP pressure requirements and overall health risks especiall y cardiovascular and diabetes. Thus patient is advised to lose weight. * Continue auto CPAP pressure at 8-12 cmH2O * Update supply prescription * Notify me if snoring with mask or feeling that the pressure is too much or too little * Attempt to lose weight * Call this office if any problems using CPAP * Return for follow up in 12 months, or sooner if concerns arise Counseling Topics: Spare mask, Weight loss health impact Prescriptions: Device supplies Follow up with Sleep Care in: 1 year Visit Type: In Office Time Spent with Patient (minutes): 15 Provider Statement: I spent 100% of the Face to Face Visit with the patient with greater than 50% spent counseling the patient and coordination of care.
[2023-11-05 13:29] VITALS: BP 143/56; O2SAT 95
== END 2023-11-05 12:42 | disposition home or self-care (01) ==
LOC: SC 12:41
PROVIDERS: ATTEND Nurse Practitioner Family
DX: G47.33 Obstructive sleep apnea (adult) (pediatric) (principal); E66.3 Overweight; Z68.29 Body mass index [BMI] 29.0-29.9, adult
CPT/HCPCS: 99212; G0463

== ENCOUNTER 2024-01-15 08:33 | Outpatient (CLI) | payer MEDICARE ==
[2024-01-15 12:07] LABS: BASOPHILS % (AUTO) 0.5 %; EOSINOPHILS # (AUTO) 0.2 10^3/uL (0.0-0.7); EOSINOPHILS % (AUTO) 2.4 %; HCT - HEMATOCRIT 41.4 % (37.0-47.0); LYMPHOCYTES % (AUTO) 31.3 %; MEAN CORPUSCULAR HEMOGLOBIN 28.8 pg (27.0-31.0); MEAN CORPUSCULAR HGB CONC 31.4 g/dL (32.0-36.0); MEAN CORPUSCULAR VOLUME 91.6 fL (81.0-99.0); MONOCYTES # (AUTO) 0.7 10^3/uL (0.0-1.0); MONOCYTES % (AUTO) 11.1 %; NEUTROPHILS # (AUTO) 3.4 10^3/uL (1.5-6.6); NEUTROPHILS % (AUTO) 54.4 %; PLT - PLATELET COUNT 217 10^3/uL (130-450); RED BLOOD COUNT 4.52 10^6/uL (4.20-5.40); RED CELL DISTRIBUTION WIDTH 14.3 % (12.0-15.0); WHITE BLOOD COUNT 6.3 x10^3/uL (4.8-10.8)
[2024-01-15 12:14] LABS: CALCIUM 9.8 mg/dL (8.5-10.3); CREATININE 0.9 mg/dL (0.6-1.3); URIC ACID 4.9 mg/dL (2.3-6.6)
[2024-01-15 12:22] LABS: ESTIMATED AVERAGE GLUCOSE 137 mg/dL (70-100); HEMOGLOBIN A1c% 6.4 % (4.27-6.07)
== END 2024-01-15 08:34 | disposition home or self-care (01) ==
LOC: LAB.N 08:33
PROVIDERS: ATTEND Internal Medicine
DX: I12.9 Hypertensive chronic kidney disease with stage 1 through stage 4 chronic kidney disease, or unspecified chronic kidney disease (principal); E11.22 Type 2 diabetes mellitus with diabetic chronic kidney disease; N18.9 Chronic kidney disease, unspecified; M10.9 Gout, unspecified
CPT/HCPCS: 36415; 80048; 83036; 84550; 85025

== ENCOUNTER 2024-05-13 07:38 | Outpatient (CLI) | payer MEDICARE ==
[2024-05-13 12:15] LABS: BASOPHILS % (AUTO) 0.6 %; EOSINOPHILS # (AUTO) 0.3 10^3/uL (0.0-0.7); EOSINOPHILS % (AUTO) 3.9 %; HCT - HEMATOCRIT 38.8 % (37.0-47.0); HGB - HEMOGLOBIN 11.9 g/dL (12.0-16.0); LYMPHOCYTES # (AUTO) 1.9 10^3/uL (1.5-3.5); LYMPHOCYTES % (AUTO) 29.7 %; MEAN CORPUSCULAR HGB CONC 30.7 g/dL (32.0-36.0); MEAN CORPUSCULAR VOLUME 94.4 fL (81.0-99.0); MEAN PLATELET VOLUME 10.1 fL (7.9-10.8); MONOCYTES # (AUTO) 0.7 10^3/uL (0.0-1.0); MONOCYTES % (AUTO) 11.5 %; NEUTROPHILS # (AUTO) 3.4 10^3/uL (1.5-6.6); PLT - PLATELET COUNT 222 10^3/uL (130-450); RED BLOOD COUNT 4.11 10^6/uL (4.20-5.40); RED CELL DISTRIBUTION WIDTH 14.4 % (12.0-15.0); WHITE BLOOD COUNT 6.4 x10^3/uL (4.8-10.8)
[2024-05-13 12:45] LABS: ALBUMIN 3.5 g/dL (3.2-5.5); ALBUMIN/GLOBULIN RATIO 1.2 (1.0-2.2); ALKALINE PHOSPHATASE 67 IU/L (42-121); ALT ALANINE AMINOTRANSFERASE 14 IU/L (10-60); AST ASPARTATE AMINOTRANSFERASE 15 IU/L (10-42); BILIRUBIN,TOTAL 0.4 mg/dL (0.2-1.0); BUN - BLOOD UREA NITROGEN 20 mg/dL (6-20); CALCIUM 9.7 mg/dL (8.5-10.3); CARBON DIOXIDE - CO2 27 mmol/L (21-32); CHLORIDE 108 mmol/L (101-111); CHOL/HDL RATIO 4.6 (<4.4); CHOLESTEROL 129 mg/dL; ESTIMATED AVERAGE GLUCOSE 123 mg/dL (70-100); GFR - MDRD 53 (>89); GLUCOSE 114 mg/dL (74-104); HDL CHOLESTEROL 28 mg/dL; HEMOGLOBIN A1c% 5.9 % (4.27-6.07); LDL CHOLESTEROL,CALCULATED 59 mg/dL; LDL/HDL RATIO 2.1 (<4.4); SODIUM 140 mmol/L (135-145); TOTAL PROTEIN 6.4 g/dL (6.4-8.9); TRIGLYCERIDES 211 mg/dL (48-352); VLDL CHOLESTEROL 42 mg/dL
[2024-05-13 12:57] LABS: CREATININE,URINE 112.6 mg/dL; MICROALBUM/CREATININE RATIO,UR 11.5 ug/mg (<30.0); MICROALBUMIN,URINE 1.3 mg/dL
== END 2024-05-13 07:39 | disposition home or self-care (01) ==
LOC: LAB.N 07:38
PROVIDERS: ATTEND Internal Medicine
DX: I12.9 Hypertensive chronic kidney disease with stage 1 through stage 4 chronic kidney disease, or unspecified chronic kidney disease (principal); E11.22 Type 2 diabetes mellitus with diabetic chronic kidney disease; N18.9 Chronic kidney disease, unspecified; E78.5 Hyperlipidemia, unspecified
CPT/HCPCS: 36415; 80053; 80061; 82043; 82570; 83036; 83721; 85025